=== PATIENT | male | born 1965 | race Caucasian/White ===

== ENCOUNTER 2016-10-30 12:52 | Emergency (ER) | payer OTHER ==
--- NOTE | 2016-10-30 13:19 | ED ---
General Adult HPI - General Chief complaint: Recheck/Abnormal Lab/Rx Stated complaint: Arrhythmia Time Seen by Provider: 10/30/16 13:00 Source: patient, RN notes reviewed Mode of arrival: ambulatory Limitations: no limitations - History of Present Illness Initial comments: This is a 51-year-old male who recently had bypass surgery approximately 2 months ago. Patient states yesterday he felt he was missing a beat he thought and so he took his pulse and he occasionally felt as though he was missing a beat. Patient states it stopped after a couple beats and it started again today for a couple beats so he decided to come to the emergency department. Patient states she's had no chest pain he's had no difficulty breathing or shortness of breath. Patient has had no lightheadedness or dizziness. Patient states he has had no near syncopal episodes. Patient denies any fever chills or cough. Patient states he only had a sensation that he was missing a beat so he took his pulse and it felt like every once in a while he missed a beat but only lasts a few seconds. Patient denies any abdominal pain patient denies nausea vomiting or diarrhea. - Related Data Home Medications Medication Instructions Recorded Confirmed Cholecalciferol [Vitamin D3] 1,000 unit PO DAILY 08/18/16 10/30/16 Terbinafine [LamISIL] 250 mg PO DAILY 08/18/16 10/30/16 Aspirin EC [Ecotrin Low Dose] 81 mg PO DAILY 10/30/16 10/30/16 HYDROcodone/APAP 5-325MG [[place] 1 tab PO Q4HR PRN 10/30/16 10/30/16 5-325] Ibuprofen [Motrin] 800 mg PO Q8H PRN 10/30/16 10/30/16 Previous Rx's Medication Instructions Recorded Lisinopril [Zestril] 5 mg PO BID #60 tab 08/20/16 Atorvastatin [Lipitor] 40 mg PO DAILY #30 tab 08/31/16 Carvedilol [Coreg*] 12.5 mg PO BID-W/MEALS #60 tab 08/31/16 Clopidogrel [Plavix] 75 mg PO DAILY #30 tab 08/31/16 Allergies Allergy/AdvReac Type Severity Reaction Status Date / Time nitroglycerin AdvReac sweating Verified 10/30/16 13:49 and lightheaded Review of Systems ROS Statement: Those systems with pertinent positive or pertinent negative responses have been documented in the HPI. ROS Other: All systems not noted in ROS Statement are negative. 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[place]), recent SOB w/ activity History of Any Multi-Drug Resistant Organisms: None Reported Past Surgical History: Heart Catheterization, Hernia Repair Additional Past Surgical History / Comment(s): right arm tendon surgery, UMBILICAL HERNIA REPAIR, LASIK EYE SX Past Anesthesia/Blood Transfusion Reactions: No Reported Reaction Past Psychological History: No Psychological Hx Reported Smoking Status: Never smoker Past Alcohol Use History: Occasional Past Drug Use History: None Reported - Past Family History Father Additional Family Medical History / Comment(s): FROM SUICIDE Mother Family Medical History: No Reported History Additional Family Medical History / Comment(s): MOM IS 90 AND HEALTHY General Exam - General Exam Comments Initial Comments: GENERAL: Patient is well-developed and well-nourished. Patient is nontoxic and well- hydrated and is in no acute distress. ENT: Neck is soft and supple. No significant lymphadenopathy is noted. Oropharynx is clear. Moist mucous membranes. Neck has full range of motion without eliciting any pain. EYES: The sclera were anicteric and conjunctiva were pink and moist. Extraocular movements were intact and pupils were equal round and reactive to light. Eyelids were unremarkable. PULMONARY: Unlabored respirations. Good breath sounds bilaterally. No audible rales rhonchi or wheezing was noted. CARDIOVASCULAR: There is a regular rate and rhythm without any murmurs gallops or rubs. ABDOMEN: Soft and nontender with normal bowel sounds. SKIN: Skin is clear with no lesions or rashes and otherwise unremarkable. NEUROLOGIC: Patient is alert and oriented x3. Cranial nerves II through XII are grossly intact. Motor and sensory are also intact. Normal speech, volume and content. Symmetrical smile. MUSCULOSKELETAL: Normal extremities with adequate strength and full range of motion. LYMPHATICS: No significant lymphadenopathy is noted PSYCHIATRIC: Normal psychiatric evaluation. Limitations: no limitations Course Vital Signs 10/30/16 13:05 Pulse Rate 61 Respiratory 16 Rate Blood Pressure 153/97 O2 Sat by Pulse 97 Oximetry Medical Decision Making - Medical Decision Making Patient's EKG shows a sinus bradycardia 50 bpm. It was on a 48 QRSs 80 QT interval 396 QTC is 388 per patient's EKG shows no ST segment elevation or depression or T-wave abdomen is noted. Patient has had no further episodes while in the emergency department and he is been here an hour so I spoke with Dr. Malone agreed the patient could follow-up Dr. Golden for Holter monitor Disposition Clinical Impression: Palpitations Disposition: HOME SELF-CARE Condition: Good Instructions: Palpitations (ED) Additional Instructions: Patient should follow-up with Dr. Golden for a Holter monitor. Referrals: Krystian Khan MD [Primary Care Provider] - 1-2 days Time of Disposition: 13:55
[2016-10-30 14:08] VITALS: BP 154/65; PULSE 51; RESP 18; TEMP 97.3
== END 2016-10-30 14:08 | disposition home or self-care (01) ==
LOC: EC 12:52
DX: R00.2 Palpitations (principal); Z95.1 Presence of aortocoronary bypass graft; Z79.02 Long term (current) use of antithrombotics/antiplatelets; Z79.82 Long term (current) use of aspirin; Z79.899 Other long term (current) drug therapy; Z88.8 Allergy status to other drugs, medicaments and biological substances; E78.5 Hyperlipidemia, unspecified; I10 Essential (primary) hypertension
CPT/HCPCS: 93005; 99283

== ENCOUNTER → 2018-02-16 | Outpatient (CLI) | payer BC ==
[2018-02-16 11:50] LABS: ALT 41 U/L (21-72); AST 32 U/L (17-59); Albumin 4.3 g/dL (3.5-5.0); Alkaline Phosphatase 89 U/L (38-126); Anion Gap 13 mmol/L; Blood Urea Nitrogen 17 mg/dL (9-20); Calcium 9.5 mg/dL (8.4-10.2); Carbon Dioxide 27 mmol/L (22-30); Chloride 104 mmol/L (98-107); Cholesterol 170 mg/dL (<200); Glucose 93 mg/dL (74-99); HDL Cholesterol 53 mg/dL (40-60); LDL Cholesterol,Calculated 89 mg/dL (0-99); Potassium 4.8 mmol/L (3.5-5.1); Sodium 144 mmol/L (137-145); Total Bilirubin 0.6 mg/dL (0.2-1.3); Total Protein 6.8 g/dL (6.3-8.2); Triglycerides 140 mg/dL (<150)
== END | disposition home or self-care (01) ==
LOC: LABWHC1 10:54
PROVIDERS: ATTEND Internal Medicine Interventional Cardiology
DX: E78.2 Mixed hyperlipidemia (principal)
CPT/HCPCS: 36415; 80053; 80061

== ENCOUNTER → 2018-08-15 | Outpatient (CLI) | payer BC ==
[2018-08-15 11:18] LABS: Basophils % (A) 0 %; Eosinophils # (A) 0.2 k/uL (0-0.7); Eosinophils % (A) 2 %; HGB 15.4 gm/dL (13.0-17.5); Lymphocytes # (A) 1.7 k/uL (1.0-4.8); Lymphocytes % (A) 25 %; MCH 29.2 pg (25.0-35.0); MCHC 32.8 g/dL (31.0-37.0); MCV 89.1 fL (80.0-100.0); Mean Platelet Volume 6.9; Monocytes # (A) 0.4 k/uL (0-1.0); Monocytes % (A) 6 %; Neutrophils # (A) 4.6 k/uL (1.3-7.7); Neutrophils % (A) 66 %; Platelet Count 222 k/uL (150-450); RBC 5.27 m/uL (4.30-5.90); RDW 12.8 % (11.5-15.5)
[2018-08-15 18:24] LABS: Albumin 4.6 g/dL (3.80-4.90); Albumin/Globulin Ratio 2.3 (1.20-2.10); Anion Gap 8.3 mmol/L (4.00-12.00); Calcium 9.5 mg/dL (8.7-10.3); Carbon Dioxide 26.7 mmol/L (21.6-31.8); Potassium 4.5 mmol/L (3.5-5.5); Total Bilirubin 0.5 mg/dL (0.2-1.2); Total Protein 6.6 g/dL (6.2-8.2)
[2018-08-15 19:18] LABS: Hemoglobin A1C 5.5 % (4.0-6.0)
== END | disposition home or self-care (01) ==
LOC: LABWHC1 10:31
PROVIDERS: ATTEND Family Medicine
DX: I10 Essential (primary) hypertension (principal); Z79.899 Other long term (current) drug therapy
CPT/HCPCS: 36415; 80053; 80061; 83036; 84443; 85025

== ENCOUNTER → 2018-11-29 | Outpatient (CLI) | payer BC ==
[2018-11-29 12:54] LABS: Basophils % (A) 0 %; Eosinophils # (A) 0.2 k/uL (0-0.7); Eosinophils % (A) 2 %; HCT 46.5 % (39.0-53.0); HGB 15.9 gm/dL (13.0-17.5); Lymphocytes # (A) 1.8 k/uL (1.0-4.8); Lymphocytes % (A) 22 %; MCH 30.9 pg (25.0-35.0); MCHC 34.3 g/dL (31.0-37.0); Mean Platelet Volume 6.3; Monocytes # (A) 0.5 k/uL (0-1.0); Monocytes % (A) 7 %; Neutrophils # (A) 5.5 k/uL (1.3-7.7); Neutrophils % (A) 67 %; Platelet Count 217 k/uL (150-450); RBC 5.17 m/uL (4.30-5.90); RDW 12.8 % (11.5-15.5); WBC 8.1 k/uL (3.8-10.6)
--- NOTE | 2018-11-29 13:55 | XR ---
EXAMINATION TYPE: XR chest 2V DATE OF EXAM: 11/29/2018 COMPARISON: 08/30/2016 INDICATION: Dyspnea x1 month TECHNIQUE: Frontal and lateral views of the chest are obtained. FINDINGS: The heart size is normal. The pulmonary vasculature is normal. The lungs are clear. Sternotomy wires are present from prior CABG. IMPRESSION: 1. No acute pulmonary process.
[2018-11-29 18:42] LABS: Albumin 4.5 g/dL (3.80-4.90); Albumin/Globulin Ratio 2.14 (1.60-3.17); Anion Gap 6.4 mmol/L (4.00-12.00); Calcium 9.9 mg/dL (8.7-10.3); Carbon Dioxide 30.6 mmol/L (21.6-31.8); Globulin 2.1 g/dL (1.6-3.3); LDL Cholesterol,Calculated 78.8 mg/dL (0.0-131.0); Potassium 4.8 mmol/L (3.5-5.5); Total Bilirubin 0.7 mg/dL (0.2-1.2); Total Protein 6.6 g/dL (6.2-8.2); VLDL Calculation 29.2 mg/dL (5.00-40.00)
[2018-11-29 20:18] LABS: Hemoglobin A1C 5.5 % (4.0-6.0)
== END | disposition home or self-care (01) ==
LOC: LABWHC1 11:54
PROVIDERS: ATTEND Family Medicine
DX: R06.00 Dyspnea, unspecified (principal); I10 Essential (primary) hypertension; I82.409 Acute embolism and thrombosis of unspecified deep veins of unspecified lower extremity; Z79.899 Other long term (current) drug therapy
CPT/HCPCS: 36415; 71046; 80053; 80061; 83036; 83880; 84443; 85025; 85379

== ENCOUNTER → 2018-12-06 | Outpatient (CLI) | payer BC | LOC: LABWHC1 11:35 | PROVIDERS: ATTEND Family Medicine | DX: I10 Essential (primary) hypertension (principal); Z79.899 Other long term (current) drug therapy | CPT/HCPCS: 36415; 82785; 84484 ==

== ENCOUNTER → 2018-12-11 | Outpatient (CLI) | payer BC ==
--- NOTE | 2018-12-12 12:32 | ECHOF ---
Referral Reason:Bradycardia R00.1 MEASUREMENTS -------- HEIGHT: 170.2 cm WEIGHT: 127.0 kg BP: RVIDd: 4.1 cm (< 3.3) IVSd: 1.3 cm (0.6 - 1.1) LVIDd: 4.9 cm (3.9 - 5.3) LVPWd: 1.2 cm (0.6 - 1.1) IVSs: 1.6 cm LVIDs: 3.2 cm LVPWs: 1.8 cm LA Diam: 3.6 cm (2.7 - 3.8) LAESV Index (A-L): 22.14 ml/m Ao Diam: 2.8 cm (2.0 - 3.7) AV Cusp: 2.2 cm (1.5 - 2.6) MV EXCURSION: 16.594 mm (> 18.000) MV EF SLOPE: 95 mm/s (70 - 150) EPSS: 0.3 cm MV E Trung: 0.89 m/s MV DecT: 245 ms MV A Trung: 0.70 m/s MV E/A Ratio: 1.27 RAP: 5.00 mmHg RVSP: 33.81 mmHg FINDINGS -------- Sinus rhythm. This was a technically adequate study. The left ventricular size is normal. There is mild concentric left ventricular hypertrophy. Overa ll left ventricular systolic function is normal with, an EF between 55 - 60 %. The right ventricle is moderately enlarged. Normal LA size by volume 22+/-6 ml/m2. The right atrium is normal in size. The aortic valve is trileaflet, and appears structurally normal. No aortic stenosis or regurgitation. The mitral valve is normal. There is trace to mild mitral regurgitation. Mild tricuspid regurgitation present. There is no evidence of pulmonary hypertension. The right v entricular systolic pressure, as measured by Doppler, is 33.81mmHg. The pulmonic valve was not well visualized. There is no pulmonic regurgitation present. The aortic root size is normal. Normal inferior vena cava with normal inspiratory collapse consistent with estimated right atrial pre ssure of 5 mmHg. There is no pericardial effusion. CONCLUSIONS -------- 1. Sinus rhythm. 2. This was a technically adequate study. 3. The left ventricular size is normal. 4. There is mild concentric left ventricular hypertrophy. 5. Overall left ventricular systolic function is normal with, an EF between 55 - 60 %. 6. The right ventricle is moderately enlarged. 7. Normal LA size by volume 22+/-6 ml/m2. 8. The aortic valve is trileaflet, and appears structurally normal. No aortic stenosis or regurgitati on. 9. The mitral valve is normal. 10. There is trace to mild mitral regurgitation. 11. Mild tricuspid regurgitation present. 12. The pulmonic valve was not well visualized. 13. The aortic root size is normal. 14. Normal inferior vena cava with normal inspiratory collapse consistent with estimated right atrial pressure of 5 mmHg. 15. There is no pericardial effusion. ELECTRICAL ASSEMBLER: Amrita Palmer RDCS
== END ==
LOC: RADECHMAIN 12:58
PROVIDERS: ATTEND Family Medicine
DX: I08.1 Rheumatic disorders of both mitral and tricuspid valves (principal)
CPT/HCPCS: 93306

== ENCOUNTER 2018-12-22 07:52 | Day surgery (SDC) | payer BC ==
[~2018-12-22 07:52] MED LIST: ALPRAZolam 0.25 MG TAB PO PRN; ALPRAZolam 0.5 MG TAB PO PRN; ASPIRIN 325 MG TAB PO STA; ATORVASTATIN 80 MG TAB PO STA; NITROGLYCERIN SL TABS 0.4 MG TAB SUBLINGUAL PRN; SODIUM CHLORIDE 0.9% 1,000 ML in EMPTY BAG 1 BAG IV ONE
[2018-12-22] MEDS ORDERED: VERAPAMIL 2.5 MG/ML 2 ML AMP ONE (10:42)
[2018-12-22] MEDS ORDERED: LIDOCAINE 1% INJ 10MG/ML (20 ML MDV) ONE (10:42)
[2018-12-22] MEDS ORDERED: fentaNYL (PF) 50 MCG/ML 2 ML AMP ONE (10:57)
[2018-12-22] MEDS ORDERED: HEPARIN SODIUM 1,000 UN/ML (10ML VL) ONE ×2 (11:01→11:57)
[2018-12-22] MEDS ORDERED: fentaNYL (PF) 50 MCG/ML 2 ML AMP IV ONE (11:19)
[2018-12-22] MEDS ORDERED: LIDOCAINE 1% INJ 10MG/ML (20 ML MDV) SQ ONE (11:25)
[2018-12-22] MEDS ORDERED: VERAPAMIL SYRINGE (5 MG/10 ML) INTRAARTER ONE (11:27)
[2018-12-22] MEDS ORDERED: CLOPIDOGREL 75 MG TAB ONE (11:52)
[2018-12-22] MEDS ORDERED: CLOPIDOGREL 75 MG TAB PO ONE (11:58)
[2018-12-22] MEDS ORDERED: IOPAMIDOL-370 150ML BTL INJ ONE (12:01)
[2018-12-22] MEDS ORDERED: IOPAMIDOL-370 100ML BTL INJ ONE (12:19)
[2018-12-22] MEDS ORDERED: MAG HYDROX/AL HYDROX/SIMETH 30 ML CUP ONE (12:29)
[2018-12-22] MEDS ORDERED: ATROPINE SULFATE 0.1 MG/ML 10ML SYRINGE IV PRN (12:41)
[2018-12-22] MEDS ORDERED: ZOLPIDEM 5 MG TAB PO PRN (12:41)
[2018-12-22] MEDS ORDERED: NITROGLYCERIN SL TABS 0.4 MG TAB SUBLINGUAL PRN (12:41)
[2018-12-22] MEDS ORDERED: RX INFO: IV CONTRAST WAS GIVEN 1 EACH MISC MISCELLANE PRN (12:41)
[2018-12-22] MEDS ORDERED: MAG HYDROX/AL HYDROX/SIMETH 30 ML CUP PO PRN (12:41)
[2018-12-22] MEDS ORDERED: SODIUM CHLORIDE 0.9% 1,000 ML IV SCH (12:45)
--- NOTE | 2018-12-22 13:04 | CC ---
CARDIAC CATHETERIZATION REPORT Mr. Dover is a 53-year-old male with known history of coronary artery disease, status post coronary artery bypass grafting in 2016, history of hypertension, hyperlipidemia, who has been complaining of episode of chest discomfort, reminding him of the way he felt, prior to his intervention. In view of that, recommendation made regarding cardiac catheterization. The procedures, risks, and complication were discussed with the patient who is in full understanding and agreement. PROCEDURE: Patient was brought to the blood bank laboratory professional in a fasting semi-sedated state after receiving fentanyl and Benadryl and achieving moderate conscious sedated state. Using Xylocaine anesthesia and Seldinger technique, a 6-[place] sheath was introduced in the left radial artery. Selective right and left angiography were performed using 5-[place] 4 bend right and left Lauren catheter. Multiple views of the coronary artery including hemiaxial views obtained. Following that, a 5-[place] right Lauren catheter was used to cannulate the ostium of the saphenous vein graft to the right coronary artery. Following that, a 6-[place] left coronary bypass catheter was used to cannulate the saphenous vein graft to the diagonal branch and images of the grafts were obtained. Following that, a 6-[place] JIMMY catheter was used to cannulate the MEDINA to LAD. Images of the grafts were obtained. Following that, angioplasty and stenting was performed. Of note, the patient received a total of 5000 units of intravenous heparin as well as intra-arterial verapamil. FINDINGS: LEFT MAIN: This is a short-size vessel, bifurcating into left circumflex, left anterior descending artery, left main coronary artery, has no evidence of high-grade stenosis. LEFT ANTERIOR DESCENDING ARTERY: This vessel is totally occluded proximally with no significant antegrade flow. LEFT CIRCUMFLEX: This is a nondominant vessel, giving rise to a large obtuse marginal branch that has a 70% stenosis. There is retrograde filling through the bypass graft. The rest of the vessel has no high-grade stenosis. RIGHT CORONARY ARTERY: This is a large dominant vessel bifurcating distally into PDA and small posterolateral segment and branches. The right coronary artery proximally has a 70% lesion. There is another two lesion distally prior to the bifurcation up to 80%. The rest of the vessel has no high-grade stenosis. SAPHENOUS VEIN GRAFT TO THE RIGHT CORONARY ARTERY: This graft is totally occluded with no significant antegrade flow. SAPHENOUS VEIN GRAFT TO THE DIAGONAL BRANCH: The proximal distal anastomotic site is patent, the flow into the graft is brisk. There is no evidence of high-grade stenosis. MEDINA TO LAD: This vessel is patent. The distal anastomotic site is patent. There is a jump graft in a Y-manner to the obtuse marginal branch with good flow and no evidence of stenosis. LEFT VENTRICULOGRAM: Left ventriculogram is not performed. CONCLUSION: 1. Severe triple-vessel coronary artery disease. 2. Patent MEDINA to LAD and a patent Y-graft from the MEDINA with a LAYNE to the obtuse marginal branch. 3. Patent saphenous vein graft to the diagonal branch. 4. Chronically occluded saphenous vein graft to the right coronary artery. RECOMMENDATION: In view of finding anatomy, I recommend proceeding with angioplasty and stenting of the right coronary artery. The procedures, risks, and complications were discussed with the patient who is in full understanding and agreement. MMODL / IJN: [id number] /
--- NOTE | 2018-12-22 13:06 | PTCA ---
PERCUTANEOUSTRANS CORORONARY ANGIOGRAPHY Mr. Dover is a 53-year-old male with a history of coronary artery disease, status post coronary artery bypass grafting who has been complaining of exertional chest discomfort. Underwent cardiac catheterization, was found to have occluded saphenous vein graft to the right coronary artery with significant disease in the vessel. In view of that, recommendation was made regarding angioplasty and stenting. The procedures, risks, and complication were discussed with the patient who is in full understanding and agreement. PROCEDURE: A 6-Chinese FR4 guiding catheter introduced into system. After cannulating the right coronary ostium, a 0.014 balanced medium weight J-wire was advanced across the lesion, positioned distally and subsequently 2.5 x 12 mm Trek balloon was advanced and two inflation at 8 atmospheres were done. Following that, the balloon was removed and a 2.5 x 23 mm Xience Agata stent was deployed, postdilated at 16 atmospheres. Following that, the balloon was removed and proximal to that stent a 2.5 x 12 mm Xience Agata stent was deployed and post dilated at 16 atmospheres. Following that, the balloon was removed and a 2.75 x 23 mm Xience Agata stent was deployed in the proximal segment of the right coronary artery and postdilated at 16 atmospheres. After the last inflation, after appropriate wait, the balloon and the guidewire were withdrawn back in the guiding catheter. Images were obtained and repeated. Those images reveal stable successful stenting. At that point, the guiding catheter, the balloon and the guidewire were removed. The sheath was removed. Hemostasis was obtained with deployment of a TR band. There was no immediate complication. Patient is returned to his room in stable condition. The patient received in addition, 10,000 units of intravenous heparin. He had chest discomfort and EKG changes with the inflation, that resolved at the end of procedure. RESULTS: Successful stenting of the distal right coronary artery with reduction of stenosis from 80% to 0% and successful stenting of the proximal right coronary artery with reduction of stenosis from 70% to 0%. RECOMMENDATION: Patient will be continued on aspirin, Plavix, beta blockers and statin. The importance of dual antiplatelet treatment were discussed with the patient and his family who are in full understanding and agreement. Duration of the procedure is 56 minutes. MMODL / IJN: [id number] /
[2018-12-22 16:16] VITALS: BMI 43.6
[2018-12-22] MEDS: CARVEDILOL 3.125 MG TAB PO SCH (17:23)
[2018-12-23 04:14] VITALS: RESP 18
[2018-12-23] MEDS: CARVEDILOL 3.125 MG TAB PO SCH (06:34)
[2018-12-23] MEDS ORDERED: SYMBICORT 160-4.5 MCG INHALER INHALATION SCH (08:00)
[2018-12-23 08:07] VITALS: BP 132/86; PULSE 59; TEMP 97.6
[2018-12-23 08:09] LABS: Anion Gap 9 mmol/L; Blood Urea Nitrogen 13 mg/dL (9-20); Calcium 9.4 mg/dL (8.4-10.2); Carbon Dioxide 26 mmol/L (22-30); Chloride 104 mmol/L (98-107); Glucose 92 mg/dL (74-99); Potassium 4.6 mmol/L (3.5-5.1); Sodium 139 mmol/L (137-145)
--- NOTE | 2018-12-23 08:44 | PN ---
PROGRESS NOTE Mr. Dover is a 53-year-old male with a known history of coronary artery disease status post coronary artery bypass grafting who presented with symptoms of angina pectoris, underwent cardiac catheterization, was found to have significant obstructive disease involving his [place] right coronary artery. He underwent stenting of that vessel in the distal and proximal segment. He is doing well this morning. He is denying any chest pain. His breathing has been stable. He has been ambulating without difficulty. He continues to be on aspirin once a day, amlodipine 5 mg daily, Lipitor 40 mg daily, Coreg 3.15 mg twice a day, Plavix 75 mg daily. PHYSICAL EXAMINATION: Blood pressure 101/60 with a heart rate in the 60s. LUNGS: Clear. HEART: Regular rate and rhythm, S1, S2. No S3. No rub. ABDOMEN: Soft, nontender, obese. EXTREMITIES: No edema. Left radial pulse intact. IMPRESSION: 1. Status post stenting of the right coronary artery, stable. 2. Status post coronary artery bypass grafting. 3. Hypertension. 4. Hyperlipidemia. RECOMMENDATIONS: Patient will be discharged home today and followed as an outpatient. MMODL / IJN: [id number] /
[2018-12-23] MEDS ORDERED: amLODIPine 5 MG TAB PO SCH (09:00)
[2018-12-23] MEDS ORDERED: ATORVASTATIN 40 MG TAB PO SCH (09:00)
[2018-12-23] MEDS ORDERED: CHOLECALCIFEROL 1,000 UNIT TAB PO SCH (09:00)
[2018-12-23] MEDS ORDERED: ASPIRIN 81 MG PO SCH (09:00)
[2018-12-23] MEDS ORDERED: CLOPIDOGREL 75 MG TAB PO SCH (12:00)
== END 2018-12-23 10:37 | disposition home or self-care (01) ==
LOC: CATHCVL 07:52 → 3SCARD 14:50 → CATHCVL 12-23 10:37
PROVIDERS: ATTEND Internal Medicine Interventional Cardiology
DX: I25.810 Atherosclerosis of coronary artery bypass graft(s) without angina pectoris (principal); I25.82 Chronic total occlusion of coronary artery; I10 Essential (primary) hypertension; E78.2 Mixed hyperlipidemia; E78.00 Pure hypercholesterolemia, unspecified; Z79.82 Long term (current) use of aspirin; Z79.899 Other long term (current) drug therapy
CPT/HCPCS: 94640 ×2; 93455; 85347; 80048; C9600; C1769 ×2; C1887; C1894; C1725; C1874; J2001; J3010; J1644; Q9967 ×2

== ENCOUNTER 2019-01-15 10:19 | Observation (INO) | payer BC ==
[2019-01-15] MEDS ORDERED: ASPIRIN 81 MG PO STA (10:33)
--- NOTE | 2019-01-15 10:44 | ED ---
Chest Pain HPI - General Chief Complaint: Chest Pain Stated Complaint: chest pressure Time Seen by Provider: 01/15/19 10:33 Source: patient Mode of arrival: wheelchair - History of Present Illness Initial Comments: 54-year-old male with past medical history of recent stent placement that 3 weeks prior, previous quadruple bypass 2016, hypertension, hyperlipidemia currently on Plavix and low-dose aspirin, [place] route carrier Dr. Golden reason today for chief complaint of chest pressure with by exercise. Patient states that 2-3 weeks ago he had 3 stents placed, he was told that his previous quadruple bypass from 2016 and had areas of failure. Stent placement was performed by Dr. Crowell. Patient states that since that placement he has still been experiencing chest pain and pressure with light exercise after about 5-10 minutes. Patient states the pain is in the center of the chest pressure that goes up towards the bottom of his neck. Patient states this scared her states is identical to his previous chest pain prior to the stent placement. Patient states the pain is alleviated with rest. Patient denies experiencing the symptoms at rest frequently however it has occurred on occasion, denies current. Patient denies leg swelling, dyspnea. He states he has felt weak with light exercise/mild SOB. She denies fever chills cough night sweats. Remaining review of systems negative, patient denies any recent abdominal pain, nausea or vomiting, numbness or tingling, jaw pain, dysuria or hematuria, constipation or diarrhea, headaches or visual changes, or any other complaints. Patient states he took his medication of Plavix and aspirin this morning. Patient states he had a low-impact stress test last week, he states there was towards the end one irregular beat and this test was stopped secondary to his recent stent placement. Pt states he presented today when chest pain occurred with light physical activity. - Related Data Home Medications Medication Instructions Recorded Confirmed Cholecalciferol [Vitamin D3] 1,000 unit PO DAILY 08/18/16 01/15/19 Aspirin EC [Ecotrin Low Dose] 81 mg PO DAILY 10/30/16 01/15/19 Carvedilol [Coreg*] 3.125 mg PO BID 12/21/18 01/15/19 amLODIPine [Norvasc] 5 mg PO DAILY 12/21/18 01/15/19 Fluticasone/Vilanterol [Breo 1 puff INHALATION DAILY 12/22/18 01/15/19 Ellipta 200-25 Mcg INH] Previous Rx's Medication Instructions Recorded Atorvastatin [Lipitor] 40 mg PO DAILY #30 tab 08/31/16 Clopidogrel [Plavix] 75 mg PO DAILY #90 tab 12/23/18 Nitroglycerin Sl Tabs [Nitrostat] 0.4 mg SUBLINGUAL Q5M PRN #25 tab 12/23/18 Allergies Allergy/AdvReac Type Severity Reaction Status Date / Time nitroglycerin AdvReac sweating Verified 01/15/19 10:58 and lightheaded Review of Systems ROS Statement: Those systems with pertinent positive or pertinent negative responses have been documented in the HPI. ROS Other: All systems not noted in ROS Statement are negative. EKG Findings - EKG Comments: EKG Findings:: Ventricular rate 61 bpm, SC interval 156 ms, QRS spiritism 88 ms, QT/QTC 408/410 ms. This appears to be normal sinus. No ST elevation or depression. Nonspecific T wave changes. 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 3 stents paced middle of december 2018 Past Anesthesia/Blood Transfusion Reactions: No Reported Reaction Past Psychological History: No Psychological Hx Reported Smoking Status: Never smoker Past Alcohol Use History: Occasional Past Drug Use History: None Reported - Past Family History Father Additional Family Medical History / Comment(s): FROM [place]ICIDE Mother Family Medical History: No Reported History Additional Family Medical History / Comment(s): MOM IS 90 AND HEALTHY General Exam - General Exam Comments Initial Comments: General: The patient is awake and alert, in no distress, and does not appear acutely ill. Eye: +3 mm pupils are equal, round and reactive to light, extra-ocular movements are intact. No nystagmus. There is normal conjunctiva bilaterally. No signs of icterus. Ears, nose, mouth and throat: There are moist mucous membranes and no oral lesions. Neck: The neck is supple, there is no tenderness or JVD. Cardiovascular: There is a regular rate and rhythm. No murmur, rub or gallop is appreciated. Respiratory: Lungs are clear to auscultation, respirations are non-labored, breath sounds are equal. No wheezes, stridor, rales, or rhonchi. Gastrointestinal: Soft, non-distended, non-tender abdomen without masses or organomegaly noted. There is no rebound or guarding present. Bowel sounds are unremarkable. Musculoskeletal: Normal ROM, no tenderness. Strength 5/5. Sensation intact. DP and radial pulses equal bilaterally 2+. Neurological: A&O x 3. CN II-XII intact, There are no obvious motor or sensory deficits. Coordination appears grossly intact. Speech is normal. Skin: Skin is warm and dry and no rashes or lesions are noted. No LE edema. Psychiatric: Cooperative, appropriate mood & affect, normal judgment. Course Vital Signs 01/15/19 01/15/19 01/15/19 10:27 10:50 10:52 Temperature 98.3 F Pulse Rate 58 L 50 L Pulse Rate [ 50 L Compilation Clerk ] Respiratory 18 18 Rate Blood Pressure 141/93 149/93 O2 Sat by Pulse 95 95 Oximetry 01/15/19 01/15/19 01/15/19 11:58 14:30 14:44 Temperature 98.3 F 98 F Pulse Rate 49 L 52 L Pulse Rate [ Compilation Clerk ] Respiratory 18 16 Rate Blood Pressure 151/95 134/91 O2 Sat by Pulse 97 97 Oximetry Chest Pain [facility] 54-year-old male presented for chest discomfort with exertion. Patient states it has occurred at rest on and off denies dysuria or chest pain at rest within the last 2 days. Patient states he has experienced chest pain with exertion, he states this is with light exercise no significant amount of stress activity. Patient states he had recent stent placement. Patient was concerned when symptoms felt similar to that of the CP prior to stent placement, and presents emergency department for evaluation. Initial troponin negative. EKG revealed no acute findings no ST elevation or depression. Chest x-ray within normal limits. Patient denies any infectious symptoms or constitutional. Patient appears well no signs of acute distress. Vital signs within acceptable limits. Patient placenta limited to. At this time given patient's risk factors I feel admission for serial troponin and cardiac evaluation by Dr. Golden is appropriate at this time. Discussed case with attending provider Dr. Delgado who is agreeable with plan and admission of patient. Findings were discussed the patient, patient transferred to the floor in stable condition appearing well. Attending provider spoke with admitting. Cardiology on consult. Disposition Clinical Impression: Exertional angina Disposition: ADMITTED IP TO THIS [facility] Condition: Stable Is patient prescribed a controlled substance at d/c from ED?: No Time of Disposition: 12:16 Decision to Admit Reason: Admit from EC Decision Date: 01/15/19 Decision Time: 12:16
[2019-01-15 11:01] LABS: Basophils % (A) 0 %; Eosinophils # (A) 0.2 k/uL (0-0.7); Eosinophils % (A) 3 %; HGB 15.1 gm/dL (13.0-17.5); Lymphocytes # (A) 1.3 k/uL (1.0-4.8); Lymphocytes % (A) 17 %; MCH 29.6 pg (25.0-35.0); MCHC 34.4 g/dL (31.0-37.0); Mean Platelet Volume 6.6; Monocytes # (A) 0.5 k/uL (0-1.0); Monocytes % (A) 7 %; Neutrophils # (A) 5.5 k/uL (1.3-7.7); Neutrophils % (A) 71 %; Platelet Count 217 k/uL (150-450); RBC 5.11 m/uL (4.30-5.90); RDW 12.9 % (11.5-15.5); WBC 7.7 k/uL (3.8-10.6)
[2019-01-15 11:13] LABS: ALT 33 U/L (21-72); AST 24 U/L (17-59); Alkaline Phosphatase 84 U/L (38-126); Anion Gap 8 mmol/L; Blood Urea Nitrogen 13 mg/dL (9-20); Calcium 9.5 mg/dL (8.4-10.2); Carbon Dioxide 24 mmol/L (22-30); Chloride 107 mmol/L (98-107); Glucose 84 mg/dL (74-99); Magnesium 1.9 mg/dL (1.6-2.3); Potassium 4.4 mmol/L (3.5-5.1); Sodium 139 mmol/L (137-145); Total Bilirubin 0.6 mg/dL (0.2-1.3); Total Protein 6.6 g/dL (6.3-8.2)
[2019-01-15 11:15] LABS: INR 0.9 (<1.2); Partial Thromboplastin Time 25.2 sec (22.0-30.0); Prothrombin Time 9.9 sec (9.0-12.0)
--- NOTE | 2019-01-15 11:33 | XR ---
EXAMINATION TYPE: XR chest 2V DATE OF EXAM: 01/15/2019 COMPARISON: Prior chest x-ray 11/29/2018 HISTORY: Chest pain TECHNIQUE: Frontal and lateral views of the chest are obtained. FINDINGS: Patient is status post median sternotomy. There are overlying cardiac leads. Prominent lung lines suggest underlying COPD. There is no focal air space opacity, pleural effusion, or pneumothora x seen. The cardiac silhouette size is within normal limits. The osseous structures are intact. IMPRESSION: No acute cardiopulmonary process.
[2019-01-15] MEDS ORDERED: NITROGLYCERIN SL TABS 0.4 MG TAB SUBLINGUAL PRN (15:47)
[2019-01-15] MEDS: CARVEDILOL 3.125 MG TAB PO SCH (17:24)
[2019-01-15] MEDS: SYMBICORT 160-4.5 MCG INHALER INHALATION SCH (20:00)
[2019-01-15] MEDS ORDERED: RX INFO: IV CONTRAST WAS GIVEN 1 EACH MISC MISCELLANE PRN (23:29)
--- NOTE | 2019-01-16 01:33 | CT ---
EXAM: CT Chest With Intravenous Contrast CLINICAL HISTORY: chest pain TECHNIQUE: 5 mm Axial computed tomography images of the chest with intravenous contrast. DLP is 730.4 mGy-cm. This CT exam was performed using one or more of the following dose reduction techniques: automated exposure control, adjustment of the mA and/or kV according to patient size, and/or use of iterative reconstruction technique. Note, slice thickness of this exam is not dedicated for PE evaluation. COMPARISON: Chest radiograph from 01/15/2019 FINDINGS: Lungs: Unremarkable. No mass. No consolidation. Pleural space: Unremarkable. No pneumothorax. No significant effusion. Heart: Unremarkable. No cardiomegaly. No significant pericardial effusion. Mediastinum: Sternal wires. Mediastinal clips. Bones/joints: Mild degenerative changes in the visualized osseous structures. Sternal wires. Soft tissues: Unremarkable. Vasculature: Small amount of atherosclerotic calcifications. No thoracic aortic aneurysm. Lymph nodes: Unremarkable. No enlarged lymph nodes. IMPRESSION: No acute findings.
[2019-01-16 04:20] LABS: Cholesterol 136 mg/dL (<200); HDL Cholesterol 45 mg/dL (40-60); LDL Cholesterol,Calculated 70 mg/dL (0-99); Triglycerides 103 mg/dL (<150)
[2019-01-16 06:59] LABS: T4, Free (Free Thyroxine) 1.01 ng/dL (0.78-2.19)
[2019-01-16 07:11] VITALS: RESP 18
[2019-01-16] MEDS ORDERED: SYMBICORT 160-4.5 MCG INHALER INHALATION SCH (08:00)
[2019-01-16] MEDS: SYMBICORT 160-4.5 MCG INHALER INHALATION SCH (08:28)
[2019-01-16] MEDS ORDERED: CLOPIDOGREL 75 MG TAB PO SCH (09:00)
[2019-01-16] MEDS ORDERED: ASPIRIN 325 MG TAB PO SCH (09:00)
[2019-01-16] MEDS ORDERED: amLODIPine 5 MG TAB PO SCH (09:00)
[2019-01-16] MEDS ORDERED: ATORVASTATIN 40 MG TAB PO SCH (09:00)
[2019-01-16] MEDS ORDERED: CHOLECALCIFEROL 1,000 UNIT TAB PO SCH (09:00)
[2019-01-16] MEDS ORDERED: ASPIRIN 81 MG PO SCH (09:00)
[2019-01-16] MEDS ORDERED: ALPRAZolam 0.25 MG TAB PO PRN (10:01)
[2019-01-16] MEDS ORDERED: SODIUM CHLORIDE 0.9% 1,000 ML in EMPTY BAG 1 BAG IV ONE (10:01)
[2019-01-16] MEDS ORDERED: ALPRAZolam 0.5 MG TAB PO PRN (10:01)
[2019-01-16] MEDS: CARVEDILOL 3.125 MG TAB PO SCH (10:21)
--- NOTE | 2019-01-16 12:17 | P.CRDCN ---
History of Present Illness History of present illness: This is a pleasant 54-year-old male past medical history significant for coronary artery disease s/p bypass grafting and subsequent stent placement to RCA in December of this year. He also has hypertension, dyslipidemia and umbilical hernia. He follows with Dr. Golden. 12/22/2018 he underwent cardiac catheterization revealing severe triple vessel coronary artery disease, patent MEDINA to LAD, patent Y graft from the MEDINA with a LAYNE to the OM, patent SVG to diagonal branch and a chronically occluded SVG to RCA. Currently maintained on dual antiplatelet therapy. We have been asked to see him in consultation secondary to chest discomfort. He states for approximately the previous 2 weeks he has felt exertional chest discomfort. Specifically a couple of days ago while he was raking his yard he started feeling a tension burning sensation in the midsternal region with radiation up into the neck and throat. He states it feels like his throat is very full and swollen and he has difficulty swallowing. He sits down and stops the activity is doing and his chest discomfort subsided. He denies associated shortness of breath, dizziness, nausea, vomiting or diaphoresis. He underwent a low-level stress test in the office and the beginning of January of which she was unable to achieve his target heart rate however had no EKG evidence of inducible ischemia. He states he has been compliant with his dual antiplatelet therapy. EKG reveals sinus mechanism with no acute ST or T wave abnormalities noted. Chest x-ray is negative for an acute cardiopulmonary process. CT of the chest is negative for an acute dissection or abnormality. Laboratory data reviewed, cardiac enzymes negative 3, d-dimer negative, TSH 4.9, creatinine 0.71 with a GFR greater than 90. Current cardiac medications include aspirin 81 mg daily, Plavix 75 mg daily, amlodipine 5 mg daily, atorvastatin 80 mg daily and Coreg 3.125 mg twice a day. most recent echocardiogram obtained in December 2018 reveals preserved left ventricular systolic function with ejection fraction 55-60%. At the time of my exam: CONSTITUTIONAL: Denies fever. Denies chills. EYES: Denies blurred vision. Denies vision changes. Denies eye pain. EARS, NOSE, MOUTH & THROAT: Denies headache. Denies sore throat. Denies ear pain. CARDIOVASCULAR: Denies chest pain. Denies shortness of breath. Denies orthopnea. Denies PND. Denies palpitations. RESPIRATORY: Denies cough. GASTROINTESTINAL: Denies abdominal pain. Denies diarrhea. Denies constipation. Denies nausea. Denies vomiting. MUSCULOSKELETAL: Denies myalgias. INTEGUMENTARY: Denies pruitis. Denies rash. NEUROLOGIC: Denies numbness. Denies tingling. Denies weakness. PSYCHIATRIC: Denies anxiety. Denies depression. ENDOCRINE: Denies fatigue. Denies weight change. Denies polydipsia. Denies polyurina. GENITOURINARY: Denies burning, hematuria or urgency with micturation. HEMATOLOGIC: Denies history of anemia. Denies bleeding. Blood pressure 115/71 heart rate 52 afebrile maintaining oxygen saturation on room air GENERAL: This is a 54-year-old male in no apparent distress at the time of my examination. obese. HEENT: Head is atraumatic, normocephalic. Pupils are equal, round. Sclerae anicteric. Conjunctivae are clear. Mucous membranes of the mouth are moist. Neck is supple. There is no jugular venous distention. No carotid bruit is heard. LUNGS: Clear to auscultation no wheezes, rales or rhonchi. No chest wall tenderness is noted on palpation or with deep breathing. HEART: Regular rate and rhythm without murmurs, rubs or gallops. S1 and S2 heard. ABDOMEN: Soft, nontender. Bowel sounds are heard. No organomegaly noted. EXTREMITIES: No evidence of peripheral edema and no calf tenderness noted. VASCULAR: Radial and dorsalis pedis pulses palpated, no evidence of clubbing. NEUROLOGIC: Patient is awake, alert and oriented x3. ASSESSMENT unstable angina History of coronary artery disease status post bypass grafting and recent stent placement to the RCA December 2018 maintained on dual antiplatelet therapy Hypertension Dyslipidemia PLAN Recommend proceeding with cardiac catheterization to further assess for acute in-stent restenosis. I have discussed the risks, benefits and alternative therapies for the above- mentioned procedure and for both sedation/analgesia as well as necessary blood product administration, if indicated, as they pertain to this patient. The patient has indicated understanding and acceptance of the risks and procedures discussed. Questions have been answered appropriately and he is agreeable to move forward with the above stated procedure. Further recommendations to follow. Thank you kindly for this consultation. Nurse Practitioner note has been reviewed, I agree with a documented findings and plan of care. Patient was seen and examined. 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 3 stents paced middle of december 2018 Past Anesthesia/Blood Transfusion Reactions: No Reported Reaction Date of Last Stent Placement:: 12/22/18 Past Psychological History: No Psychological Hx Reported Smoking Status: Never smoker Past Alcohol Use History: Occasional Past Drug Use History: None Reported - Past Family History Father Additional Family Medical History / Comment(s): FROM SUICIDE Mother Family Medical History: No Reported History Additional Family Medical History / Comment(s): MOM IS 90 AND HEALTHY Medications and Allergies Home Medications Medication Instructions Recorded Confirmed Type Cholecalciferol [Vitamin D3] 1,000 unit PO DAILY 08/18/16 01/15/19 History Atorvastatin [Lipitor] 40 mg PO DAILY #30 tab 08/31/16 01/15/19 Rx Aspirin EC [Ecotrin Low Dose] 81 mg PO DAILY 10/30/16 01/15/19 History Carvedilol [Coreg*] 3.125 mg PO BID 12/21/18 01/15/19 History amLODIPine [Norvasc] 5 mg PO DAILY 12/21/18 01/15/19 History Fluticasone/Vilanterol [Breo 1 puff INHALATION DAILY 12/22/18 01/15/19 History Ellipta 200-25 Mcg INH] Clopidogrel [Plavix] 75 mg PO DAILY #90 tab 12/23/18 01/15/19 Rx Nitroglycerin Sl Tabs [Nitrostat] 0.4 mg SUBLINGUAL Q5M PRN #25 tab 12/23/18 01/15/19 Rx Allergies Allergy/AdvReac Type Severity Reaction Status Date / Time nitroglycerin AdvReac sweating Verified 01/15/19 10:58 and lightheaded Physical Exam Vitals: Vital Signs Temp Pulse Pulse Resp BP BP BP 01/16/19 11:24 98.5 F 55 L 18 129/81 01/16/19 08:00 52 L 18 01/16/19 07:05 97.5 F L 52 L 18 115/71 01/16/19 03:46 97.7 F 49 L 16 109/58 01/16/19 03:37 16 01/16/19 00:00 16 01/15/19 23:44 98.7 F 55 L 16 133/61 01/15/19 20:00 98.3 F 53 L 16 134/82 01/15/19 16:14 01/15/19 14:57 98.2 F 57 L 18 152/96 01/15/19 14:44 98 F 01/15/19 14:30 52 L 16 134/91 Pulse Ox 01/16/19 11:24 96 01/16/19 08:00 01/16/19 07:05 95 01/16/19 03:46 94 L 01/16/19 03:37 01/16/19 00:00 01/15/19 23:44 97 01/15/19 20:00 93 L 01/15/19 16:14 98 01/15/19 14:57 97 01/15/19 14:44 01/15/19 14:30 97 Intake and Output 01/15/19 01/16/19 01/16/19 22:59 06:59 14:59 Intake Total 236 Balance 236 Intake: Oral 236 Other: Voiding Method Toilet Toilet Toilet # Voids 2 2 Results 01/15/19 10:45 01/15/19 10:45 Cardiac Enzymes 01/15/19 01/15/19 Range/Units 17:15 22:56 Troponin I <0.012 <0.012 (0.000-0.034) ng/mL Lipids 01/15/19 Range/Units 10:45 Triglycerides 103 (<150) mg/dL Cholesterol 136 (<200) mg/dL HDL Cholesterol 45 (40-60) mg/dL Current Medications Generic Name Dose Route Start Last Admin Trade Name Freq PRN Reason Stop Dose Admin Alprazolam 0.25 mg 01/16/19 10:01 Xanax PO Q6HR PRN Mild Anxiety Alprazolam 0.5 mg 01/16/19 10:01 Xanax PO Q6HR PRN Moderate Anxiety Amlodipine Besylate 5 mg 01/16/19 09:00 01/16/19 10:21 Norvasc PO 5 mg DAILY KAREN Administration Aspirin 81 mg 01/16/19 09:00 01/16/19 10:22 Aspirin PO Not Given DAILY KAREN Atorvastatin Calcium 40 mg 01/16/19 09:00 01/16/19 10:22 Lipitor PO 40 mg DAILY KAREN Administration Budesonide/Formoterol Fumarate 2 puff 01/15/19 20:00 01/16/19 08:28 Symbicort 160-4.5 Mcg Inhaler INHALATION 2 puff RT-BID KAREN Administration Carvedilol 3.125 mg 01/15/19 17:30 01/16/19 10:21 Coreg PO 3.125 mg BID-W/MEALS KAREN Administration Cholecalciferol 1,000 unit 01/16/19 09:00 01/16/19 10:22 Vitamin D3 PO 1,000 unit DAILY KAREN Administration Clopidogrel Bisulfate 75 mg 01/16/19 09:00 01/16/19 10:21 Plavix PO 75 mg DAILY KAREN Administration Sodium Chloride 1,000 ml/ IV 1,000 mls @ 127.006 mls/hr 01/16/19 10:01 01/16/19 10:39 Solution IV 01/16/19 17:53 127.006 mls/hr .Q7H53M ONE Administration 1 ML/KG/HR Miscellaneous Information 1 each 01/15/19 23:29 Rx Info: Iv Contrast Was Given MISCELLANE 01/17/19 23:30 DAILY PRN Per Protocol Nitroglycerin 0.4 mg 01/15/19 15:47 Nitrostat SUBLINGUAL Q5M PRN Chest Pain Intake and Output 01/15/19 01/16/19 01/16/19 22:59 06:59 14:59 Intake Total 236 Balance 236 Intake: Oral 236 Other: Voiding Method Toilet Toilet Toilet # Voids 2 2 01/15/19 10:45 01/15/19 10:45
[2019-01-16] MEDS ORDERED: fentaNYL (PF) 50 MCG/ML 2 ML AMP ONE (12:51)
[2019-01-16] MEDS ORDERED: LIDOCAINE 1% INJ 10MG/ML (20 ML MDV) ONE (12:51)
[2019-01-16] MEDS ORDERED: VERAPAMIL 2.5 MG/ML 2 ML AMP ONE (13:01)
[2019-01-16] MEDS ORDERED: fentaNYL (PF) 50 MCG/ML 2 ML AMP IVP ONE (13:05)
[2019-01-16] MEDS ORDERED: LIDOCAINE 2% INJ 20 MG/ML SQ ONE (13:05)
[2019-01-16] MEDS ORDERED: SODIUM CHLORIDE 0.9% 1,000 ML IV ONE (13:06)
[2019-01-16] MEDS ORDERED: HEPARIN SODIUM 1,000 UN/ML (10ML VL) ONE (13:07)
[2019-01-16] MEDS ORDERED: VERAPAMIL SYRINGE (5 MG/10 ML) INTRAARTER ONE (13:08)
[2019-01-16] MEDS ORDERED: HEPARIN SODIUM 1,000 UN/ML (10ML VL) IV ONE (13:12)
[2019-01-16] MEDS ORDERED: IOPAMIDOL-370 150ML BTL INJ ONE (13:27)
[2019-01-16] MEDS ORDERED: RX INFO: IV CONTRAST WAS GIVEN 1 EACH MISC MISCELLANE PRN (13:40)
--- NOTE | 2019-01-16 13:43 | HP ---
HISTORY AND PHYSICAL CHIEF COMPLAINT: This 54-year-old white male with recent bypass grafting and stents to the RCA 2 or 3 weeks ago. He has had significant unstable angina with chest pain with any ambulation. Similar to what he did before the stents were placed. CAT scan of the chest has been ordered, which was negative for any pulmonary features. The patient does not think it is in his lungs. He thinks it is his heart. Chest pain with any exertion. Suboptimal stress test recently. He is admitted due to unstable angina and will need a heart catheterizations. REVIEW OF SYSTEMS: Fourteen-point review of systems negative except for unstable angina. PHYSICAL EXAMINATION: Blood pressure 115/71, heart rate is 50s, respiratory 18 to 20. CARDIOVASCULAR: S1, S2. ENDOCRINE: He is obese. BMI is over 40. OPHTHALMOLOGIC: Pupils equal, round, reactive to light and accommodation. Lungs are clear. Abdomen is soft, distended due to obesity. Vascular is normal dorsalis pedis, posterior tibial, radial pulse. PSYCH: Fair mood and affect. Alert and orient x3. PAST MEDICAL HISTORY: Coronary artery disease, bypass grafting, hernia repair, LASIK eye surgery in the past, 3 stents 3 weeks ago. FAMILY HISTORY: Father from suicide. HOME MEDICATIONS: See list. ASSESSMENT: 1. Unstable angina. 2. Anxiety. 3. Hypertension. 4. Dyslipidemia. 5. Obesity. 6. Onychomycosis. Failed outpatient treatment unstable angina, need heart catheterization. MMODL / LINGN: [id number] /
[2019-01-16] MEDS ORDERED: SODIUM CHLORIDE 0.9% 1,000 ML IV SCH (13:45)
[2019-01-16 14:12] VITALS: TEMP 98
[2019-01-16 15:36] VITALS: BP 127/77; PULSE 65
--- NOTE | 2019-01-16 21:52 | CC ---
CARDIAC CATHETERIZATION REPORT Mr. Dover is a 54-year-old gentleman with known history of coronary artery disease, status post coronary artery bypass grafting and percutaneous revascularization done in December of this year. He presented with recurrent symptoms of chest discomfort that feels the way he felt prior to his PCI. Cardiac enzymes and EKG showed no acute changes, but because of the persistent symptoms, recommendation was made regarding cardiac catheterization. The procedure, its risks and complications were discussed with the patient, who was in full understanding and agreement. PROCEDURE: Patient was brought to the syrup machine laborer in a fasting, semi-sedated state after receiving fentanyl and Benadryl and achieving a moderate conscious sedated state. Using Xylocaine anesthesia and Seldinger technique, a 6-Kazakh sheath was introduced in the left radial artery. Selective right and left coronary angiography was performed using 5-Kazakh 4 bend right and left Lauren catheters. Multiple views were taken of the arteries, including hemiaxial views. Subsequently a 6-Kazakh left coronary artery bypass catheter was introduced and cannulated the saphenous vein grafts to the diagonal and to the RCA. Subsequently an JIMMY catheter was used to cannulate the MEDINA to the LAD and images of the grafts were obtained. Following that, a 5-Kazakh tight pigtail catheter was introduced in the left ventricle and a 30-degree BANSAL view of the left ventricle was obtained. Following that, catheter and sheath were removed. Hemostasis was obtained with deployment of a TR band. There was no immediate complication. Patient was returned to his room in stable condition. Of note, the patient received 5000 units of intravenous heparin as well as intra-arterial Verapamil. FINDINGS: LEFT MAIN: This is a short-sized vessel bifurcating into left circumflex, left anterior descending artery. Left main coronary artery has no evidence of high-grade stenosis. LEFT ANTERIOR DESCENDING ARTERY: This vessel is totally occluded proximally after the takeoff of a small diagonal branch with no significant antegrade flow. LEFT CIRCUMFLEX: This is a large nondominant vessel giving rise to a large obtuse marginal branch. There is retrograde filling of the graft through the obtuse marginal branch prior to the insertion of the graft. There is a 50% to 60% plaque. The rest of the vessel has no high-grade stenosis. RIGHT CORONARY ARTERY: This is a large dominant vessel bifurcating distally into PDA and posterolateral segment and branches. The mid RCA and the distal RCA stented segments are patent with no evidence of stent thrombosis with a BALAJI-3 flow. SAPHENOUS VENOUS VEIN GRAFT TO THE RIGHT CORONARY ARTERY: This graft is totally occluded. SAPHENOUS VEIN GRAFT TO THE DIAGONAL BRANCH: The proximal and distal anastomotic sites are patent. There is no evidence of obstructive disease. The flow in the diagonal branch is brisk. MEDINA TO THE LAD WITH A Y-GRAFT TO THE OBTUSE MARGINAL BRANCH: Both grafts are open with brisk flow. Non-selective images were obtained, but selective images were obtained in December. LEFT VENTRICULOGRAM: Left ventriculogram was performed in 30-degree BANSAL view and revealed normal left ventricular size and systolic function, ejection fraction of 60%. There was no significant mitral regurgitation. HEMODYNAMICS: There was no gradient across the aortic valve. The left ventricular end-diastolic pressure was 10 mmHg. CONCLUSION: 1. Chronically occluded LAD. 2. Patent stents of the right coronary artery. 3. Mild to moderate disease in the left circumflex. 4. Patent MEDINA to LAD and Y-graft LAYNE to the obtuse marginal branch. 5. Patent saphenous vein graft to the diagonal branch. 6. Chronically occluded saphenous vein graft to the RCA. RECOMMENDATIONS: In view of the findings, I see no progression of disease compared to the prior procedure that was done recently. In view of that, I would recommend continued medical therapy. Depending on his progress, further recommendations will be made. Those findings and recommendations were discussed with the patient and his family, and they are in full understanding and agreement. Duration of procedure: 27 minutes. MMJOONL / LINGN: [id number] /
== END 2019-01-16 17:05 | disposition home or self-care (01) ==
LOC: EC 10:19 → 1SOBS 12:02
PROVIDERS: ADMIT Family Medicine; ATTEND Family Medicine
DX: I25.710 Atherosclerosis of autologous vein coronary artery bypass graft(s) with unstable angina pectoris (principal); I25.110 Atherosclerotic heart disease of native coronary artery with unstable angina pectoris; I25.82 Chronic total occlusion of coronary artery; I10 Essential (primary) hypertension; F41.9 Anxiety disorder, unspecified; E78.5 Hyperlipidemia, unspecified; L40.9 Psoriasis, unspecified; E66.9 Obesity, unspecified; Z68.41 Body mass index [BMI] 40.0-44.9, adult; R13.10 Dysphagia, unspecified; Z79.02 Long term (current) use of antithrombotics/antiplatelets; Z79.82 Long term (current) use of aspirin; Z79.51 Long term (current) use of inhaled steroids; Z79.899 Other long term (current) drug therapy; Z88.8 Allergy status to other drugs, medicaments and biological substances; Z95.5 Presence of coronary angioplasty implant and graft; Z95.1 Presence of aortocoronary bypass graft; Z81.8 Family history of other mental and behavioral disorders
CPT/HCPCS: 99285; 36415; 94640 ×2; 93005; 93459; 85379; 84439; 80061; 80053; 84443; 83735; 84484; 85025; 85610; 85730; 71046; 71260; G0378 ×3; C1769 ×2; C1894; J2001; J3010; J1644; Q9967 ×2

== ENCOUNTER 2019-02-09 13:30 | Emergency (ER) | payer BC ==
[2019-02-09 13:42] VITALS: TEMP 98
[2019-02-09] MEDS ORDERED: SODIUM CHLORIDE 0.9% 1,000 ML IV STA (13:50)
--- NOTE | 2019-02-09 14:04 | ED ---
Arrhythmia/Palpitations HPI - General Chief Complaint: Arrhythmia/Palpitations Stated Complaint: Arrhythmia Time Seen by Provider: 02/09/19 13:48 Source: patient, RN notes reviewed, old records reviewed Mode of arrival: ambulatory Limitations: no limitations - History of Present Illness Initial Comments: This is a 54-year-old male the ER for evaluation. Patient resents today for evaluation regards to he does present now with palpitations. Patient denies chest pain or shortness of breath no recent travel or sick contacts. No change in medications denies drugs or alcohol. No shortness of breath currently palpitations have resolved MD Complaint: palpitations -: hour(s) Context: occurred during rest Associated Symptoms: denies other symptoms - Related Data Home Medications Medication Instructions Recorded Confirmed Cholecalciferol [Vitamin D3 (25 1,000 unit PO DAILY 08/18/16 02/09/19 Mcg = 1000 Iu)] Aspirin EC [Ecotrin Low Dose] 81 mg PO DAILY 10/30/16 02/09/19 Carvedilol [Coreg*] 6.25 mg PO BID 12/21/18 02/09/19 Previous Rx's Medication Instructions Recorded Atorvastatin [Lipitor] 40 mg PO DAILY #30 tab 08/31/16 Clopidogrel [Plavix] 75 mg PO DAILY #90 tab 12/23/18 Nitroglycerin Sl Tabs [Nitrostat] 0.4 mg SUBLINGUAL Q5M PRN #25 tab 12/23/18 Allergies Allergy/AdvReac Type Severity Reaction Status Date / Time nitroglycerin AdvReac sweating Verified 02/09/19 14:08 and lightheaded Review of Systems ROS Statement: Those systems with pertinent positive or pertinent negative responses have been documented in the HPI. ROS Other: All systems not noted in ROS Statement are negative. 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 3 stents paced middle of december 2018 Past Anesthesia/Blood Transfusion Reactions: No Reported Reaction Date of Last Stent Placement:: 12/22/18 Past Psychological History: No Psychological Hx Reported Smoking Status: Never smoker Past Alcohol Use History: Occasional Past Drug Use History: None Reported - Past Family History Father Additional Family Medical History / Comment(s): FROM SUICIDE Mother Family Medical History: No Reported History Additional Family Medical History / Comment(s): MOM IS 90 AND HEALTHY General Exam Limitations: no limitations General appearance: alert, in no apparent distress Head exam: Present: atraumatic, normocephalic, normal inspection Eye exam: Present: normal appearance, PERRL, EOMI. Absent: scleral icterus, conjunctival injection, periorbital swelling ENT exam: Present: normal exam, mucous membranes moist Neck exam: Present: normal inspection. Absent: tenderness, meningismus, lymphadenopathy Respiratory exam: Present: normal lung sounds bilaterally. Absent: respiratory distress, wheezes, rales, rhonchi, stridor Cardiovascular Exam: Present: regular rate, normal rhythm, normal heart sounds. Absent: systolic murmur, diastolic murmur, rubs, gallop, clicks GI/Abdominal exam: Present: soft, normal bowel sounds. Absent: distended, tenderness, guarding, rebound, rigid Extremities exam: Present: normal inspection, full ROM, normal capillary refill. Absent: tenderness, pedal edema, joint swelling, calf tenderness Back exam: Present: normal inspection Neurological exam: Present: alert, oriented X3, CN II-XII intact Psychiatric exam: Present: normal affect, normal mood Skin exam: Present: warm, dry, intact, normal color. Absent: rash Course Vital Signs 02/09/19 02/09/19 02/09/19 13:39 14:11 15:00 Temperature 98.0 F Pulse Rate 64 56 L 56 L Respiratory 18 18 16 Rate Blood Pressure 124/73 109/84 119/75 O2 Sat by Pulse 96 95 99 Oximetry 02/09/19 15:30 Temperature Pulse Rate 54 L Respiratory 16 Rate Blood Pressure 120/81 O2 Sat by Pulse 99 Oximetry EKG Findings - EKG Comments: EKG Findings:: EKG shows sinus rhythm rate of 61, IL 144, QRS 66, QTc 388 Medical Decision Making - Medical Decision Making 54 male the ER for evaluation of palpitations. No findings here in the ER patient can be discharged home - Lab Data Result diagrams: 02/09/19 14:00 02/09/19 14:00 Lab Results 02/09/19 02/09/19 02/09/19 Range/Units 14:00 14:00 14:00 WBC 7.5 (3.8-10.6) k/uL RBC 5.00 (4.30-5.90) m/uL Hgb 15.0 (13.0-17.5) gm/dL Hct 45.2 (39.0-53.0) % MCV 90.4 (80.0-100.0) fL MCH 30.0 (25.0-35.0) pg MCHC 33.2 (31.0-37.0) g/dL RDW 12.9 (11.5-15.5) % Plt Count 205 (150-450) k/uL Neutrophils % 67 % Lymphocytes % 22 % Monocytes % 6 % Eosinophils % 2 % Basophils % 0 % Neutrophils # 5.0 (1.3-7.7) k/uL Lymphocytes # 1.7 (1.0-4.8) k/uL Monocytes # 0.5 (0-1.0) k/uL Eosinophils # 0.2 (0-0.7) k/uL Basophils # 0.0 (0-0.2) k/uL PT (9.0-12.0) sec INR (<1.2) APTT (22.0-30.0) sec D-Dimer (<0.60) mg/L FEU Sodium 140 (137-145) mmol/L Potassium 4.6 (3.5-5.1) mmol/L Chloride 107 (98-107) mmol/L Carbon Dioxide 26 (22-30) mmol/L Anion Gap 7 mmol/L BUN 17 (9-20) mg/dL Creatinine 0.86 (0.66-1.25) mg/dL Est GFR (CKD-EPI)AfAm >90 (>60 ml/min/1.73 sqM) Est GFR (CKD-EPI)NonAf >90 (>60 ml/min/1.73 sqM) Glucose 94 (74-99) mg/dL Plasma Lactic Acid Ariel 1.1 (0.7-2.0) mmol/L Calcium 9.9 (8.4-10.2) mg/dL Phosphorus 3.8 (2.5-4.5) mg/dL Magnesium 1.8 (1.6-2.3) mg/dL Total Bilirubin 0.5 (0.2-1.3) mg/dL AST 22 (17-59) U/L ALT 32 (21-72) U/L Alkaline Phosphatase 89 (38-126) U/L Troponin I (0.000-0.034) ng/mL NT-Pro-B Natriuret Pep pg/mL Total Protein 6.9 (6.3-8.2) g/dL Albumin 4.3 (3.5-5.0) g/dL TSH 1.740 (0.465-4.680) mIU/L 02/09/19 02/09/19 02/09/19 Range/Units 14:00 14:00 14:00 WBC (3.8-10.6) k/uL RBC (4.30-5.90) m/uL Hgb (13.0-17.5) gm/dL Hct (39.0-53.0) % MCV (80.0-100.0) fL MCH (25.0-35.0) pg MCHC (31.0-37.0) g/dL RDW (11.5-15.5) % Plt Count (150-450) k/uL Neutrophils % % Lymphocytes % % Monocytes % % Eosinophils % % Basophils % % Neutrophils # (1.3-7.7) k/uL Lymphocytes # (1.0-4.8) k/uL Monocytes # (0-1.0) k/uL Eosinophils # (0-0.7) k/uL Basophils # (0-0.2) k/uL PT 9.9 (9.0-12.0) sec INR 0.9 (<1.2) APTT 24.7 (22.0-30.0) sec D-Dimer 0.26 (<0.60) mg/L FEU Sodium (137-145) mmol/L Potassium (3.5-5.1) mmol/L Chloride (98-107) mmol/L Carbon Dioxide (22-30) mmol/L Anion Gap mmol/L BUN (9-20) mg/dL Creatinine (0.66-1.25) mg/dL Est GFR (CKD-EPI)AfAm (>60 ml/min/1.73 sqM) Est GFR (CKD-EPI)NonAf (>60 ml/min/1.73 sqM) Glucose (74-99) mg/dL Plasma Lactic Acid Ariel (0.7-2.0) mmol/L Calcium (8.4-10.2) mg/dL Phosphorus (2.5-4.5) mg/dL Magnesium (1.6-2.3) mg/dL Total Bilirubin (0.2-1.3) mg/dL AST (17-59) U/L ALT (21-72) U/L Alkaline Phosphatase (38-126) U/L Troponin I <0.012 (0.000-0.034) ng/mL NT-Pro-B Natriuret Pep 167 pg/mL Total Protein (6.3-8.2) g/dL Albumin (3.5-5.0) g/dL TSH (0.465-4.680) mIU/L Disposition Clinical Impression: Palpitations Disposition: HOME SELF-CARE Condition: Good Instructions (If sedation given, give patient instructions): Heart Palpitations (ED) Is patient prescribed a controlled substance at d/c from ED?: No Referrals: Krystian Khan MD [Primary Care Provider] - 1-2 days
[2019-02-09 14:30] LABS: Basophils % (A) 0 %; Eosinophils # (A) 0.2 k/uL (0-0.7); Eosinophils % (A) 2 %; HCT 45.2 % (39.0-53.0); Lymphocytes # (A) 1.7 k/uL (1.0-4.8); Lymphocytes % (A) 22 %; MCHC 33.2 g/dL (31.0-37.0); MCV 90.4 fL (80.0-100.0); Mean Platelet Volume 7.1; Monocytes # (A) 0.5 k/uL (0-1.0); Monocytes % (A) 6 %; Neutrophils % (A) 67 %; Platelet Count 205 k/uL (150-450); RDW 12.9 % (11.5-15.5); WBC 7.5 k/uL (3.8-10.6)
[2019-02-09 14:34] LABS: ALT 32 U/L (21-72); AST 22 U/L (17-59); Albumin 4.3 g/dL (3.5-5.0); Alkaline Phosphatase 89 U/L (38-126); Anion Gap 7 mmol/L; Blood Urea Nitrogen 17 mg/dL (9-20); Calcium 9.9 mg/dL (8.4-10.2); Carbon Dioxide 26 mmol/L (22-30); Chloride 107 mmol/L (98-107); Glucose 94 mg/dL (74-99); Magnesium 1.8 mg/dL (1.6-2.3); Phosphorus 3.8 mg/dL (2.5-4.5); Potassium 4.6 mmol/L (3.5-5.1); Sodium 140 mmol/L (137-145); Total Bilirubin 0.5 mg/dL (0.2-1.3); Total Protein 6.9 g/dL (6.3-8.2)
[2019-02-09 14:36] LABS: D-Dimer 0.26 mg/L FEU (<0.60); INR 0.9 (<1.2); Partial Thromboplastin Time 24.7 sec (22.0-30.0); Prothrombin Time 9.9 sec (9.0-12.0)
[2019-02-09 15:07] VITALS: RESP 16
[2019-02-09 15:46] VITALS: BP 120/81; PULSE 54
== END 2019-02-09 15:44 | disposition home or self-care (01) ==
LOC: EC 13:30
DX: R00.2 Palpitations (principal); I25.119 Atherosclerotic heart disease of native coronary artery with unspecified angina pectoris; Z79.82 Long term (current) use of aspirin; Z79.899 Other long term (current) drug therapy; Z88.8 Allergy status to other drugs, medicaments and biological substances; Z95.1 Presence of aortocoronary bypass graft; Z95.5 Presence of coronary angioplasty implant and graft
CPT/HCPCS: 36415; 80053; 83605; 83735; 83880; 84100; 84443; 84484; 85025; 85379; 85610; 85730; 93005; 96360; 99285

== ENCOUNTER → 2020-04-08 | Outpatient (CLI) | payer OTHER ==
[~2020-04-08] MED LIST changes: -ALPRAZolam 0.25 MG TAB PO PRN; -ALPRAZolam 0.5 MG TAB PO PRN; -ASPIRIN 325 MG TAB PO STA; -ATORVASTATIN 80 MG TAB PO STA; -NITROGLYCERIN SL TABS 0.4 MG TAB SUBLINGUAL PRN; +REGADENOSON 0.4 MG/5 ML SYRINGE IV ONE; -SODIUM CHLORIDE 0.9% 1,000 ML in EMPTY BAG 1 BAG IV ONE
--- NOTE | 2020-04-08 12:00 | ECHOF ---
Referral Reason:I25.10 CAD MEASUREMENTS -------- HEIGHT: 170.2 cm WEIGHT: 127.0 kg BP: RVIDd: 4.7 cm (< 3.3) IVSd: 1.5 cm (0.6 - 1.1) LVIDd: 4.9 cm (3.9 - 5.3) LVPWd: 1.6 cm (0.6 - 1.1) IVSs: 2.0 cm LVIDs: 3.3 cm LVPWs: 2.0 cm LAESV Index (A-L): 29.71 ml/m Ao Diam: 3.4 cm (2.0 - 3.7) AV Cusp: 2.4 cm (1.5 - 2.6) MV EXCURSION: 17.332 mm (> 18.000) MV EF SLOPE: 101 mm/s (70 - 150) EPSS: 0.5 cm MV E Trung: 0.95 m/s MV DecT: 219 ms MV A Trung: 0.69 m/s MV E/A Ratio: 1.38 RAP: 5.00 mmHg RVSP: 34.27 mmHg FINDINGS -------- This was a technically difficult study with suboptimal apical views. Morbid Obesity The left ventricular size is normal. There is moderate concentric left ventricular hypertrophy. O verall left ventricular systolic function is low-normal with, an EF between 50 - 55 %. The diastoli c filling pattern is normal for the age of the patient {E/E'}. Septal wall motion is delayed and co nsistent with prior cardiac surgery. The right ventricle is moderate to severely enlarged. Normal LA size by volume 22+/-6 ml/m2. The right atrium is moderately enlarged. 5.0mg of Lumason was utilized for enhancement of images Interatrial and interventricular septum intact. The aortic valve is trileaflet and appears structurally normal. There is no evidence of aortic regu rgitation. There is no evidence of aortic stenosis. No mitral regurgitation. Mild tricuspid regurgitation present. There is mild pulmonary hypertension. The right ventricular systolic pressure, as measured by Doppler, is 34.27mmHg. There is no pulmonic regurgitation present. The aortic root size is normal. IVC Not well visulized. There is no pericardial effusion. CONCLUSIONS -------- 1. This was a technically difficult study with suboptimal apical views. 2. Morbid Obesity 3. The left ventricular size is normal. 4. There is moderate concentric left ventricular hypertrophy. 5. Overall left ventricular systolic function is low-normal with, an EF between 50 - 55 %. 6. The diastolic filling pattern is normal for the age of the patient {E/E'} 7. Septal wall motion is delayed and consistent with prior cardiac surgery. 8. The right ventricle is moderate to severely enlarged. 9. Normal LA size by volume 22+/-6 ml/m2. 10. The right atrium is moderately enlarged. 11. 5.0mg of Lumason was utilized for enhancement of images 12. Interatrial and interventricular septum intact. 13. The aortic valve is trileaflet and appears structurally normal. 14. There is no evidence of aortic regurgitation. 15. There is no evidence of aortic stenosis. 16. No mitral regurgitation. 17. Mild tricuspid regurgitation present. 18. There is mild pulmonary hypertension. 19. The right ventricular systolic pressure, as measured by Doppler, is 34.27mmHg. 20. There is no pulmonic regurgitation present. 21. The aortic root size is normal. 22. IVC Not well visulized. 23. There is no pericardial effusion. TRIAL EXAMINER: Charity Stanford RDCS
--- NOTE | 2020-04-08 12:37 | EST ---
EXERCISE STRESS DATE OF SERVICE: 04/08/2020 AGE: 55 SEX: M HT: 67" WT: 280 lbs PROTOCOL: Lexiscan Cardiolite STAGE: DURATION OF EXERCISE: HEART RATE REST: 51 BLOOD PRESSURE REST: 123/69 MAXIMUM HEART RATE ACHIEVED: 66 MAXIMUM BLOOD PRESSURE: 114/69 85% MPHR: 139 100% MPHR: 163 METS: INDICATIONS: Chest pain. REFERRING PHYSICIANS: Dr. Khan. STRESS DATA: Heart rate is 51, pressure is 123/69 mmHg. Baseline EKG showed sinus mechanism. 0.4 mg of Lexiscan given over 15 seconds per protocol. Max heart rate was 66 beats per minute and maximum pressure was 123/69 mmHg. Clinically the patient did not have no symptoms and the EKG did not show any significant ST or T-wave abnormalities concerning for ischemia. CONCLUSION: 1. Nondiagnostic electrocardiogram stress testing in response to Lexiscan. 2. Please follow up on the Cardiolite portion on separate report from Radiology department. MMODL / IJN: [id number] /
--- NOTE | 2020-04-08 13:01 | NM ---
EXAMINATION TYPE: NM stress lexiscan cardiolite DATE OF EXAM: 04/08/2020 COMPARISON: NONE HISTORY: Precordial chest pain and abnormal EKG TECHNIQUE: After the intravenous administration of 9.3 mCi Tc 99m Sestamibi - Cardiolite resting SPE CT images acquired 75 minutes post injection. The patient received 0.4mg Lexiscan, 23.3 mCi Tc 99m Sestamibi - Stress images obtained [address] injection FINDINGS: Review of stress and rest SPECT images demonstrates reversible ischemic change involving the cardiac apex at its anterolateral apical wall as well as the lateral wall. Correlate clinically. Gated analys is shows normal wall motion with an estimated left ventricular ejection fraction of 56 %. IMPRESSION: scintigraphic evidence for reversible ischemia.
== END | disposition home or self-care (01) ==
LOC: RADECHMAIN 08:09
PROVIDERS: ATTEND Family Medicine
DX: I25.10 Atherosclerotic heart disease of native coronary artery without angina pectoris (principal); I27.20 Pulmonary hypertension, unspecified; E66.01 Morbid (severe) obesity due to excess calories; I07.1 Rheumatic tricuspid insufficiency
CPT/HCPCS: 93017; 93306; 78452; A9500; J2785; Q9950

== ENCOUNTER 2021-07-17 13:02 | Inpatient (IN) | payer OTHER, SELFPAY ==
[2021-07-17 14:04] LABS: Basophils % (A) 0 %; Eosinophils % (A) 0 %; HCT 45.6 % (39.0-53.0); HGB 15.4 gm/dL (13.0-17.5); Lymphocytes # (A) 1.5 k/uL (1.0-4.8); Lymphocytes % (A) 9 %; MCH 30.7 pg (25.0-35.0); MCHC 33.7 g/dL (31.0-37.0); Mean Platelet Volume 7.7; Monocytes # (A) 0.9 k/uL (0-1.0); Monocytes % (A) 6 %; Neutrophils # (A) 13.5 k/uL (1.3-7.7); Neutrophils % (A) 84 %; Platelet Count 223 k/uL (150-450); RBC 5.01 m/uL (4.30-5.90); RDW 12.4 % (11.5-15.5); WBC 16.1 k/uL (3.8-10.6)
[2021-07-17 14:26] LABS: ALT 24 U/L (4-49); AST 21 U/L (17-59); African American GFR (CKD) >90 (>60 ml/min/1.73 sqM); Albumin 4.2 g/dL (3.5-5.0); Alkaline Phosphatase 68 U/L (38-126); Anion Gap 7 mmol/L; Blood Urea Nitrogen 18 mg/dL (9-20); Calcium 9.7 mg/dL (8.4-10.2); Carbon Dioxide 28 mmol/L (22-30); Chloride 104 mmol/L (98-107); Glucose 109 mg/dL (74-99); Magnesium 1.8 mg/dL (1.6-2.3); Non-African American GFR(CKD) 87 (>60 ml/min/1.73 sqM); Potassium 4.1 mmol/L (3.5-5.1); Sodium 139 mmol/L (137-145); Total Bilirubin 0.4 mg/dL (0.2-1.3); Total Protein 6.8 g/dL (6.3-8.2)
[2021-07-17 14:46] LABS: Partial Thromboplastin Time 22.6 sec (22.0-30.0)
--- NOTE | 2021-07-17 14:57 | XR ---
EXAMINATION TYPE: XR chest 2V DATE OF EXAM: 07/17/2021 COMPARISON: 01/15/2019 TECHNIQUE: PA and lateral views submitted. HISTORY: Chest Pain FINDINGS: The lungs are clear and there is no pneumothorax, pleural effusion, or focal pneumonia. Heart is en larged and there is postoperative change. Biapical pleural thickening. Hyperinflation. Degenerative c hange of the spine. Bilateral pleural-based thickening. Ectasia of the aorta. Hypertrophic and degene rative change of the spine. IMPRESSION: 1. No acute process.
[2021-07-17] MEDS ORDERED: ASPIRIN 81 MG PO STA (18:22)
[2021-07-17] MEDS ORDERED: MORPHINE SULFATE 4 MG/ML SYRINGE IVP STA (18:23)
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
[2021-07-17] MEDS ORDERED: NALOXONE 0.4 MG/ML 1 ML VIAL IV PRN ×2 (19:31→19:34)
[2021-07-17] MEDS ORDERED: MORPHINE SULFATE 4 MG/ML SYRINGE IV PRN (19:34)
[2021-07-17] MEDS: carvediloL 6.25 MG TAB PO SCH (20:12)
[2021-07-17] MEDS ORDERED: HEPARIN SODIUM 1,000 UN/ML (10ML VL) IV PRN (21:12)
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
[2021-07-17] MEDS: HEPARIN SOD,PORK IN 0.45% NACL 25,000 UNIT in 0.45% NACL 1 250ML.BAG IV SCH (22:19)
[2021-07-18 04:04] LABS: Partial Thromboplastin Time 23.1 sec (22.0-30.0); Prothrombin Time 10.6 sec (9.0-12.0)
[2021-07-18 04:14] LABS: African American GFR (CKD) >90 (>60 ml/min/1.73 sqM); Anion Gap 9 mmol/L; Blood Urea Nitrogen 17 mg/dL (9-20); Calcium 9.1 mg/dL (8.4-10.2); Carbon Dioxide 26 mmol/L (22-30); Chloride 103 mmol/L (98-107); Glucose 109 mg/dL (74-99); Non-African American GFR(CKD) >90 (>60 ml/min/1.73 sqM); Potassium 4.5 mmol/L (3.5-5.1); Sodium 138 mmol/L (137-145)
[2021-07-18] MEDS ORDERED: ATORVASTATIN 40 MG TAB PO SCH (09:00)
[2021-07-18 09:07] LABS: Basophils # (A) 0.02 X 10*3/uL (0.00-0.10); Basophils % (A) 0.2 %; Eosinophils # (A) 0 X 10*3/uL (0.04-0.35); Eosinophils % (A) 0 %; HCT 44.2 % (39.6-50.0); HGB 14.5 g/dL (13.0-17.0); Lymphocytes # (A) 1.24 X 10*3/uL (0.90-5.00); Lymphocytes % (A) 10.8 %; MCHC 32.8 g/dL (32.0-37.0); MCV 91.5 fL (80.0-97.0); Mean Platelet Volume 10.3 fL (9.5-12.2); Monocytes # (A) 0.67 X 10*3/uL (0.20-1.00); Monocytes % (A) 5.9 %; Neutrophils # (A) 9.47 X 10*3/uL (1.80-7.70); Neutrophils % (A) 82.8 %; Platelet Count 216 X 10*3/uL (140-440); RBC 4.83 X 10*6/uL (4.40-5.60); RDW 12.6 % (11.5-14.5); WBC 11.44 X 10*3/uL (4.50-10.00)
[2021-07-18] MEDS: ASPIRIN 81 MG PO SCH (09:36)
[2021-07-18] MEDS: amLODIPine 5 MG TAB PO SCH (09:36)
[2021-07-18] MEDS: carvediloL 6.25 MG TAB PO SCH ×2 (09:37→18:49)
[2021-07-18] MEDS: CLOPIDOGREL 75 MG TAB PO SCH (09:38)
[2021-07-18] MEDS: CHOLECALCIFEROL 25 MCG (1000 IU) TABLET PO SCH (09:38)
[2021-07-18] MEDS: DOXYCYCLINE 100 MG CAP PO SCH ×2 (09:38→21:04)
[2021-07-18] MEDS: EZETIMIBE 10 MG TAB PO SCH (09:38)
--- NOTE | 2021-07-18 14:00 | ECHOF ---
Referral Reason:chest pain MEASUREMENTS -------- HEIGHT: 170.2 cm WEIGHT: 127.0 kg BP: IVSd: 1.1 cm (0.6 - 1.1) LVIDd: 5.7 cm (3.9 - 5.3) LVPWd: 1.2 cm (0.6 - 1.1) EDV(Teich): 159 ml IVSs: 1.4 cm LVIDs: 3.1 cm LVPWs: 1.8 cm %IVS Thck: 31 % ESV(Teich): 39 ml EF(Teich): 75 % %FS: 45 % SV(Teich): 120 ml RVIDd: 4.1 cm (< 3.3) Ao Diam: 3.2 cm (2.0 - 3.7) LA Diam: 4.1 cm (2.7 - 3.8) AV Cusp: 2.1 cm (1.5 - 2.6) EPSS: 1.1 cm MV E Turng: 0.72 m/s MV DecT: 237 ms MV Dec [place]: 3.0 m/s MV A Trung: 0.62 m/s MV E/A Ratio: 1.17 MV PHT: 69 ms MR Vmax: 1.06 m/s MR maxP.48 mmHg AV Vmax: 1.16 m/s AV maxP.39 mmHg TR Vmax: 3.34 m/s TR maxP.74 mmHg RAP: 5.00 mmHg RVSP: 49.74 mmHg MV EF SLOPE: 52.27 mm/s (70 - 150) MV EXCURSION: 8.98 mm (> 18.000) FINDINGS -------- This was a technically difficult study with suboptimal views. The left ventricular size is normal. Left ventricular wall thickness is normal. Overall left vent ricular systolic function is mildly impaired with, an EF between 45 - 50 %. There is paradoxical/dy synergic septal motion consistent with right ventricular volume overload and/or elevated right ventri cular end-diastolic pressure. The right ventricle is moderately enlarged. The left atrial size is normal. The right atrial size is normal. Lumason used The aortic valve is trileaflet and appears structurally normal. The mitral valve is normal. There is trace mitral regurgitation. The tricuspid valve appears structurally normal. Mild tricuspid regurgitation present. There is m oderate pulmonary hypertension. The right ventricular systolic pressure, as measured by Doppler, is 49.74mmHg. There is no pulmonic regurgitation present. The aortic root size is normal. IVC Not well visulized. There is no pericardial effusion. CONCLUSIONS -------- 1. The left ventricular size is normal. 2. Left ventricular wall thickness is normal. 3. Overall left ventricular systolic function is mildly impaired with, an EF between 45 - 50 %. 4. There is paradoxical/dysynergic septal motion consistent with right ventricular volume overload an d/or elevated right ventricular end-diastolic pressure. 5. The right ventricle is moderately enlarged. 6. There is trace mitral regurgitation. 7. Mild tricuspid regurgitation present. 8. There is moderate pulmonary hypertension. 9. The right ventricular systolic pressure, as measured by Doppler, is 49.74mmHg. 10. There is no pericardial effusion. X RAY DEVELOPER: Blanca Rucker RDCS
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
--- NOTE | 2021-07-18 18:29 | P.CRDCN ---
History of Present Illness Consult date: 07/18/21 Consult reason: chest pain History of present illness: This is Kwasi Miles NP dictating a consult on this patient on behalf of Dr. Flores. The patient was interviewed and examined. HPI: Patient is a pleasant 56-year-old male who initially presented to the hospital with chest pain and suspected angina. Patient reports that approximately one and a half to 2 weeks ago he started noticing tightness in his chest with exertion, moving up into his neck if he continued to exert himself. If he sat down and rested for 15 or 20 minutes, he noted the chest tightness would improve. Patient reports during these episodes that he would no flushing, palpitations, and some dizziness. Patient has a significant cardiac history with a quadruple bypass 5 years ago, CAD, and stent placements. Patient's initial troponins have been negative. Current medications include amlodipine, carvedilol, heparin, and atorvastatin. Patient is currently denying chest pain, shortness of breath, and heart palpitations. ROS: [No fever, chills, or rigors] [no cough, phlegm, or expectoration] [no nausea, vomiting, or diarrhea] [no hematuria, dysuria] [no musculoskelatal complaints] [no strokes or seizures] [no skin lesions] EXAMINATION: GENERAL: Well-appearing, well-nourished and in no acute distress. NECK: Supple without JVD or thyromegaly. LUNGS: Breath sounds clear to auscultation bilaterally. Respiration equal and u nlabored. No wheezes, rales or rhonchi. HEART: Regular rate and rhythm without murmurs, rubs or gallops. S1 and S2 heard. EXTREMITIES: Normal range of motion, no edema. No clubbing or cyanosis. Pe ripheral pulses intact and strong. REVIEW OF LABS, ECG & MEDICAL DATA: LABS: White count 11.44, PT 10.6, INR 1.0, APTT 23.1, d-dimer less than 0.17, sodium 138, potassium 4.5, BUN 17, creatinine 0.83, serial troponins 3 less than 0.012 EKG: EKG dated 07/17/2021 demonstrates normal sinus rhythm. Review of telemetry strips demonstrates patient currently in sinus bradycardia with a heart rate around 59. IMAGING: Echocardiogram dated for today demonstrates a left ventricular size is normal, left ventricular wall thickness is normal, overall left ventricular systolic function is mildly impaired with an ejection fraction between 45 and 50%, there is paradoxical/dyssynergy septal motion consistent with right ventricular volume overload and/or elevated right ventricular and diastolic pressure, right ventricle is moderately enlarged, there is trace mitral regurgitation, mild tricuspid regurgitation is present there is moderate pulmonary hypertension, right ventricular systolic pressure is measured by the Doppler is 49.74 mmHg, and no pericardial effusion. VITALS: Temp 97.4, pulse of 54, respiratory rate 18, blood pressure 152/87, O2 saturation 98% on room air. IMPRESSION/PLAN: 1. Chest pain-due to patient's significant cardiac history and description of current chest discomfort and tightness, we will schedule the patient for a cardiac cath on Tuesday. 2. Hyperlipidemia-increase atorvastatin 80 mg daily. Further recommendations pending patient's clinical course Thank you for the consult and allowing us to participate in the care of this patient. 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 3 stents paced middle of december 2018 Past Anesthesia/Blood Transfusion Reactions: No Reported Reaction Date of Last Stent Placement:: 12/22/18 Past Psychological History: No Psychological Hx Reported Additional Psychological History / Comment(s): Pt resides with his spouse and children. He is retired. He is independent. Smoking Status: Never smoker Past Alcohol Use History: Occasional Past Drug Use History: None Reported - Past Family History Father Additional Family Medical History / Comment(s): FROM SUICIDE Mother Family Medical History: No Reported History Additional Family Medical History / Comment(s): MOM IS 90 AND HEALTHY Medications and Allergies Home Medications Medication Instructions Recorded Confirmed Type Cholecalciferol [Vitamin D3 (25 1,000 unit PO DAILY 08/18/16 07/17/21 History Mcg = 1000 Iu)] Atorvastatin [Lipitor] 40 mg PO DAILY #30 tab 08/31/16 07/17/21 Rx Aspirin EC [Ecotrin Low Dose] 81 mg PO DAILY 10/30/16 07/17/21 History Clopidogrel [Plavix] 75 mg PO DAILY #90 tab 12/23/18 07/17/21 Rx Carvedilol [Coreg] 3.125 mg PO BID 07/17/21 07/17/21 History Doxycycline Hyclate 100 mg PO BID 07/17/21 07/17/21 History Ezetimibe [Zetia] 10 mg PO DAILY 07/17/21 07/17/21 History Nitroglycerin Sl Tabs [Nitrostat] 0.4 mg SL Q5M PRN 07/17/21 07/17/21 History Sildenafil [Revatio] 20 mg PO DAILY PRN 07/17/21 07/17/21 History amLODIPine [Norvasc] 5 mg PO DAILY 07/17/21 07/17/21 History methylPREDNISolone [Medrol Dose See Taper PO DIRECTED 07/17/21 07/17/21 History Pack] Allergies Allergy/AdvReac Type Severity Reaction Status Date / Time No Known Allergies Allergy Unverified 07/17/21 20:04 Physical Exam Vitals: Vital Signs Temp Pulse Pulse Resp BP BP Pulse Ox 07/18/21 14:26 97.4 F L 54 L 18 152/87 98 07/18/21 08:33 98.1 F 50 L 14 142/78 96 07/18/21 01:15 97.7 F 52 L 16 129/78 95 07/17/21 23:00 98.3 F 50 L 18 132/65 96 07/17/21 22:00 51 L 20 134/83 99 07/17/21 20:00 54 L 18 134/85 95 07/17/21 18:48 49 L 20 137/41 97 Intake and Output 07/18/21 07/18/21 07/18/21 06:59 14:59 22:59 Intake Total 480 Output Total 1 Balance 479 Intake: Oral 480 Output: Stool 1 Other: Voiding Method Toilet # Voids 1 2 Results 07/18/21 03:25 07/18/21 03:25 Cardiac Enzymes 07/17/21 07/17/21 07/18/21 Range/Units 19:03 22:31 03:25 Troponin I <0.012 <0.012 <0.012 (0.000-0.034) ng/mL Coagulation 07/18/21 Range/Units 03:25 PT 10.6 (9.0-12.0) sec APTT 23.1 (22.0-30.0) sec CBC 07/18/21 Range/Units 03:25 WBC 11.44 H (4.50-10.00) X 10*3/uL RBC 4.83 (4.40-5.60) X 10*6/uL Hgb 14.5 (13.0-17.0) g/dL Hct 44.2 (39.6-50.0) % Plt Count 216 (140-440) X 10*3/uL Comprehensive Metabolic Panel 07/18/21 Range/Units 03:25 Sodium 138 (137-145) mmol/L Potassium 4.5 (3.5-5.1) mmol/L Chloride 103 (98-107) mmol/L Carbon Dioxide 26 (22-30) mmol/L BUN 17 (9-20) mg/dL Creatinine 0.83 (0.66-1.25) mg/dL Glucose 109 H (74-99) mg/dL Calcium 9.1 (8.4-10.2) mg/dL Current Medications Generic Name Dose Route Start Last Admin Trade Name Freq PRN Reason Stop Dose Admin Amlodipine Besylate 5 mg 07/18/21 09:00 07/18/21 09:36 Amlodipine 5 Mg Tab PO 5 mg DAILY KAREN Administration Aspirin 81 mg 07/18/21 09:00 07/18/21 09:36 Aspirin 81 Mg PO 81 mg DAILY KAREN Administration Atorvastatin Calcium 40 mg 07/18/21 09:00 07/18/21 10:07 Atorvastatin 40 Mg Tab PO 40 mg DAILY KAREN Administration Carvedilol 6.25 mg 07/17/21 21:00 07/18/21 09:37 Carvedilol 6.25 Mg Tab PO 3.125 mg BID-W/MEALS KAREN Administration Cholecalciferol 25 mcg 07/18/21 09:00 07/18/21 09:38 Cholecalciferol 25 Mcg (1000 Iu) Tablet PO 25 mcg DAILY KAREN Administration Clopidogrel Bisulfate 75 mg 07/18/21 09:00 10/09/21 09:38 Clopidogrel 75 Mg Tab PO 75 mg DAILY KAREN Administration Doxycycline Monohydrate 100 mg 07/18/21 09:00 07/18/21 09:38 Doxycycline 100 Mg Cap PO 07/23/21 23:00 100 mg BID KAREN Administration Ezetimibe 10 mg 07/18/21 09:00 07/18/21 09:38 Ezetimibe 10 Mg Tab PO 10 mg DAILY KAREN Administration Heparin Sodium (Porcine) 0 unit 07/17/21 21:12 Heparin Sodium 1,000 Un/Ml (10ml Vl) IV PER PROTOCOL PRN Low PTT Protocol Heparin Sodium/Sodium Chloride 250 mls @ 10 mls/hr 07/17/21 21:15 07/17/21 22:19 25,000 unit/ Sodium Chloride IV Not Given .Q24H [facility] Protocol 7.874 UNITS/KG/HR Morphine Sulfate 4 mg 07/17/21 19:34 Morphine Sulfate 4 Mg/Ml Syringe IV Q4HR PRN Severe Pain Naloxone HCl 0.2 mg 07/17/21 19:31 Naloxone 0.4 Mg/Ml 1 Ml Vial IV Q2M PRN Opioid Reversal Intake and Output 07/18/21 07/18/21 07/18/21 06:59 14:59 22:59 Intake Total 480 Output Total 1 Balance 479 Intake: Oral 480 Output: Stool 1 Other: Voiding Method Toilet # Voids 1 2 07/18/21 03:25 07/18/21 03:25
[2021-07-18] MEDS: HEPARIN SOD,PORK IN 0.45% NACL 25,000 UNIT in 0.45% NACL 1 250ML.BAG IV SCH (20:16)
[2021-07-19] MEDS: DOXYCYCLINE 100 MG CAP PO SCH ×2 (07:33→21:00)
[2021-07-19] MEDS: ASPIRIN 81 MG PO SCH (07:33)
[2021-07-19] MEDS: amLODIPine 5 MG TAB PO SCH (07:33)
[2021-07-19] MEDS: CLOPIDOGREL 75 MG TAB PO SCH (07:34)
[2021-07-19] MEDS: CHOLECALCIFEROL 25 MCG (1000 IU) TABLET PO SCH (07:34)
[2021-07-19] MEDS: EZETIMIBE 10 MG TAB PO SCH (07:34)
[2021-07-19] MEDS ORDERED: ATORVASTATIN 80 MG TAB PO SCH (09:00)
[2021-07-19] MEDS: carvediloL 6.25 MG TAB PO SCH ×2 (11:01→16:31)
[2021-07-19] MEDS: carvediloL 3.125 MG TAB PO SCH ×2 (13:12→21:00)
[2021-07-19] MEDS ORDERED: NITROGLYCERIN SL TABS 0.4 MG TAB SUBLINGUAL PRN (14:45)
[2021-07-19] MEDS ORDERED: ALPRAZolam 0.25 MG TAB PO PRN (14:45)
[2021-07-19] MEDS ORDERED: ALPRAZolam 0.5 MG TAB PO PRN (14:45)
--- NOTE | 2021-07-19 14:47 | P.PN ---
Subjective Progress Note Date: 07/19/21 Principal diagnosis: Chest pain This is Kwasi suarez NP, dictating a progress note on behalf of Dr. Flores. Patient was interviewed and examined. Patient is a pleasant 56-year-old male who initially presented to the hospital with chest pain and suspected angina. Patient reports that approximately one and a half to 2 weeks ago he started noticing tightness in his chest with exertion, moving up into his neck if he continued to exert himself. If he sat down and rested for 15 or 20 minutes, he noted the chest tightness would improve. Patient reports during these episodes that he would no flushing, palpitations, and some dizziness. Patient has a significant cardiac history with a quadruple bypass 5 years ago, CAD, and stent placements. Patient's in itial troponins have been negative. Current medications include amlodipine, carvedilol, heparin, and atorvastatin. Patient is currently denying chest pain, shortness of breath, and heart palpitations. 07/19/2021: Patient has no complaints of chest pain or discomfort today. Echocardiogram demonstrated patient's EF of 45-50%. Patient will be scheduled for a cardiac cath with Dr. Golden on Tuesday. GENERAL: Well-appearing, well-nourished and in no acute distress. NECK: Supple without JVD or thyromegaly. LUNGS: Breath sounds clear to auscultation bilaterally. Respiration equal and unlabored. No wheezes, rales or rhonchi. HEART: Regular rate and rhythm without murmurs, rubs or gallops. S1 and S2 heard. EXTREMITIES: Normal range of motion, no edema. No clubbing or cyanosis. Peripheral pulses intact and strong. VITALS: [Temp 97.8, pulse rate 49, respirations 18, blood pressure 161/69, O2 sat 95% on room air] TELEMETRY: [Sinus bradycardia] LABS: [White count 11.4, hemoglobin 14.5, DT 10.6, INR 1.0, APTT 23.1, d-dimer is less than 0.17, sodium 138, potassium 4.5, BUN 17, creatinine 0.83, calcium 9.1, serial troponins 3-less than 0.012, less than 0.012, less than 0.012.] IMPRESSION/PLAN: 1. Chest pain-patient will be scheduled for cardiac cath tomorrow. Nothing by mouth after midnight. Objective - Vital Signs Vital signs: Vital Signs Temp 97.8 F 07/19/21 07:00 Pulse 49 L 07/19/21 13:53 Resp 18 07/19/21 13:53 BP 161/69 07/19/21 07:00 Pulse Ox 95 07/19/21 07:00 Intake & Output 07/18/21 07/19/21 07/19/21 18:59 06:59 18:59 Intake Total 720 300 Output Total 1 1 Balance 719 299 Intake: Oral 720 300 Output: Stool 1 1 Other: Voiding Method Toilet Toilet # Voids 1 1 3 - Labs CBC & Chem 7: 07/18/21 03:25 07/18/21 03:25
[2021-07-19] MEDS: SODIUM CHLORIDE 0.9% 1,000 ML in EMPTY BAG 1 BAG IV SCH (15:55)
--- NOTE | 2021-07-19 18:19 | PN ---
PROGRESS NOTE DATE OF SERVICE: 07/19/2021 This 56-year-old gentleman admitted with chest pain is evaluated by Cardiology and recommended cardiac catheterization tomorrow. No chest pain. No palpitations. No fever. PHYSICAL EXAMINATION: Alert and oriented x3. Pulse 52, blood pressure 120/74, respirations 16, temperature 97.7, pulse ox 94% on room air. HEENT: Conjunctivae normal. Oral mucosa moist. NECK: No jugular venous distention. No lymph node enlargement. CARDIOVASCULAR: S1, S2, muffled. No S3, no S4, RESPIRATORY: Diminished breath sounds at the bases. No rhonchi, no crackles. ABDOMEN: Soft. NERVOUS SYSTEM: No focal deficits. LABS: WBC 11.44. BMP noted. COVID-19 is negative. ASSESSMENT: 1. Chest pain, possible unstable angina, myocardial infarction ruled out. 2. Elevated WBC, most probably reactive. 3. Reduced left ventricular systolic function with possible cardiomyopathy. 4. History of trace mitral regurgitation. 5. History of CAD, CABG, stent. 6. History of palpitations. 7. History of psoriasis. 8. History of smoking cessation. 9. History of hernia repair. 10.History of tendon surgery. RECOMMENDATIONS AND DISCUSSION: Recommend to continue current management and symptomatic treatment. Otherwise, follow closely with Cardiology. A 2D echo with Doppler was done which showed ejection fraction of 45-50%. MMODL / IJN: [id number] /
[2021-07-19] MEDS: HEPARIN SOD,PORK IN 0.45% NACL 25,000 UNIT in 0.45% NACL 1 250ML.BAG IV SCH (20:58)
[2021-07-20] MEDS: SODIUM CHLORIDE 0.9% 1,000 ML in EMPTY BAG 1 BAG IV SCH ×4 (00:43→20:04)
[2021-07-20] MEDS ORDERED: ASPIRIN 325 MG TAB PO ONE (06:00)
[2021-07-20] MEDS ORDERED: ATORVASTATIN 80 MG TAB PO ONE (06:00)
[2021-07-20] MEDS: carvediloL 3.125 MG TAB PO SCH ×2 (06:12→17:06)
[2021-07-20] MEDS: EZETIMIBE 10 MG TAB PO SCH (06:12)
[2021-07-20] MEDS: amLODIPine 5 MG TAB PO SCH (06:12)
[2021-07-20] MEDS: DOXYCYCLINE 100 MG CAP PO SCH ×2 (06:12→20:04)
[2021-07-20] MEDS: CHOLECALCIFEROL 25 MCG (1000 IU) TABLET PO SCH (06:12)
[2021-07-20] MEDS ORDERED: HEPARIN SODIUM,PORCINE 2,500 UNIT in SODIUM CHLORIDE 0.9% 250 ML IRRIGATION PRN (07:00)
[2021-07-20] MEDS ORDERED: HEPARIN SODIUM,PORCINE 10,000 UNIT in SODIUM CHLORIDE 0.9% 1,000 ML IRRIGATION PRN (07:00)
[2021-07-20] MEDS: CLOPIDOGREL 75 MG TAB PO SCH (08:19)
[2021-07-20 09:25] LABS: MCH 30.7 pg (25.0-35.0); MCHC 33.5 g/dL (31.0-37.0); MCV 91.9 fL (80.0-100.0); Mean Platelet Volume 7.4; Platelet Count 198 k/uL (150-450); RBC 4.89 m/uL (4.30-5.90); RDW 12.3 % (11.5-15.5); WBC 9.5 k/uL (3.8-10.6)
[2021-07-20 10:00] LABS: African American GFR (CKD) >90 (>60 ml/min/1.73 sqM); Blood Urea Nitrogen 15 mg/dL (9-20); Carbon Dioxide 28 mmol/L (22-30); Chloride 104 mmol/L (98-107); Glucose 89 mg/dL (74-99); Non-African American GFR(CKD) >90 (>60 ml/min/1.73 sqM); Potassium 4.3 mmol/L (3.5-5.1)
[2021-07-20 10:13] LABS: Anion Gap 4 mmol/L; Sodium 136 mmol/L (137-145)
[2021-07-20] MEDS ORDERED: VERAPAMIL 2.5 MG/ML 2 ML AMP ONE (11:38)
[2021-07-20] MEDS ORDERED: LIDOCAINE 1% INJ 10MG/ML (20 ML MDV) ONE (11:38)
[2021-07-20] MEDS ORDERED: fentaNYL (PF) 50 MCG/ML 2 ML AMP ONE (11:59)
[2021-07-20] MEDS ORDERED: HEPARIN SODIUM 1,000 UN/ML (10ML VL) ONE (11:59)
[2021-07-20] MEDS ORDERED: IV FLUID CONTINUATION 1,000 ML IV ONE (12:00)
[2021-07-20] MEDS ORDERED: fentaNYL (PF) 50 MCG/ML 2 ML AMP IV ONE (12:15)
[2021-07-20] MEDS ORDERED: LIDOCAINE 1% INJ 10MG/ML (20 ML MDV) SQ ONE (12:18)
[2021-07-20] MEDS ORDERED: VERAPAMIL SYRINGE (5 MG/10 ML) INTRAARTER ONE (12:20)
[2021-07-20] MEDS ORDERED: HEPARIN SODIUM 1,000 UN/ML (10ML VL) IV ONE (12:26)
[2021-07-20] MEDS ORDERED: IOPAMIDOL-370 125ML BTL INJ ONE (12:38)
[2021-07-20] MEDS ORDERED: NITROGLYCERIN 1000MCG/10ML SYRINGE INTRACORON ONE (12:48)
[2021-07-20] MEDS ORDERED: IOPAMIDOL-370 100ML BTL INJ ONE (13:02)
[2021-07-20] MEDS ORDERED: ATROPINE SULFATE 0.1 MG/ML 10ML SYRINGE IV PRN (13:18)
[2021-07-20] MEDS ORDERED: ZOLPIDEM 5 MG TAB PO PRN (13:18)
[2021-07-20] MEDS ORDERED: RX INFO: IV CONTRAST WAS GIVEN 1 EACH MISC MISCELLANE PRN (13:18)
[2021-07-20] MEDS ORDERED: NITROGLYCERIN SL TABS 0.4 MG TAB SUBLINGUAL PRN (13:18)
[2021-07-20] MEDS ORDERED: MAG HYDROX/AL HYDROX/SIMETH 30 ML CUP PO PRN (13:18)
[2021-07-20] MEDS ORDERED: SODIUM CHLORIDE 0.9% 1,000 ML IV SCH (13:30)
--- NOTE | 2021-07-20 14:32 | PN ---
PROGRESS NOTE This is a gentleman who sees Dr. Golden apparently in the outpatient setting. He was seen by Dr. Flores and following the evaluation, given his presentation, he was advised cardiac catheterization. The patient at this time is resting comfortably without symptoms. His vitals are stable. There is no JVD or carotid bruit. S1-S2 heard normally. Lungs are clear. Abdomen is soft, nontender. Lower extremities reveal normal pulses. No edema. Central nervous system is normal. EKG revealed a sinus mechanism, no acute changes. There is right ventricular conduction delay. IMPRESSION: Chest pain, evaluated by Dr. Flores, advised cardiac catheterization, which is scheduled for today. RECOMMENDATIONS: Same medical regimen. Await the results of cardiac cath which will be performed by Dr. Golden shortly. Patient is fully aware of the details and rationale. MMODL / IJN: [id number] /
--- NOTE | 2021-07-20 14:38 | PTCA ---
PERCUTANEOUSTRANS CORORONARY ANGIOGRAPHY Mr. Dover is a 56-year-old male with known history of coronary artery disease who presented with new onset unstable angina pattern, underwent cardiac catheterization and was found to have critical stenosis in the distal right coronary artery and recommendation made regarding angioplasty and stenting. The procedure as well as the risks and the complications were discussed with the patient who is in full understanding and agreement. PROCEDURE: A 6-[place]izen [place] FR4 guiding catheter was introduced into the system. After cannulating the right coronary ostium, a 0.014 balanced medium weight J-wire was advanced across the lesion, positioned distally and then a 2.5 x 12 mm NC Trek balloon was advanced and two inflations at 8 atmospheres were done. Subsequently a 2.75 x 15 mm Xience Skypoint stent was advanced, deployed and was dilated at 16 atmospheres. After removing the balloon, a 3.0 x 12 mm NC Trek balloon was advanced and two inflations at 12 atmospheres were done. After the last inflation, after appropriate wait, the balloon and the guidewire were withdrawn back in the guiding catheter. Images were obtained, repeated. Those images reveal stable successful stenting. At that point, the guiding catheter, the balloon and the guidewire were removed. The sheath was removed. Hemostasis was obtained with deployment of TR band. There was no immediate complication. Patient is returned to his room in stable condition. Of note, the patient received 8000 units of intravenous heparin as well as intra-arterial verapamil. He had chest discomfort and EKG changes with the inflation that resolved at the end of the procedure. RESULTS: Successful stenting of the distal right coronary artery with reduction of stenosis from 99% to 0%. RECOMMENDATION: Patient will be continued on aspirin, Plavix, beta blockers, Phillip inhibitors, statin. The importance of dual antiplatelet treatment were discussed with the patient and his family who are in full understanding and agreement. Duration of sedation is 49 minutes. MMODL / IJN: [id number] /
--- NOTE | 2021-07-20 14:38 | CC ---
CARDIAC CATHETERIZATION REPORT Mr. Dover is a 56-year-old male known history of coronary artery disease status post coronary artery bypass grafting who presented with new onset exertional angina pectoris. In view of that, recommendation was made regarding cardiac catheterization. The procedure as well as the risks and the complications were discussed with the patient who is in full understanding and agreement. PROCEDURE: Patient was brought to the color laboratory technician in a fasting state after receiving fentanyl and Benadryl and achieving moderate conscious sedated state. Using Xylocaine anesthesia and Seldinger technique, a 6-Thai sheath was introduced in the left radial artery. Selective right and left coronary angiography performed using 5-Thai 4 bend right and left Lauren catheters. Multiple views of the coronary arteries including hemiaxial views obtained. Following that, the 5-Thai right Lauren was used to cross the aortic valve and used to cannulate the MEDINA to the LAD. Images of the grafts were obtained. Following that, a 6-Thai LCB catheter was introduced and images of the saphenous vein graft to the obtuse marginal branch were done. Following that, catheters were removed and a 6-Thai FR4 guiding catheter was introduced into the system that was used to cannulate the saphenous vein graft to the radial. FINDING: LEFT MAIN: This is a short size vessel, bifurcating into left circumflex, left anterior descending artery, left main coronary artery has no evidence of high-grade stenosis. LEFT ANTERIOR DESCENDING CORONARY ARTERY: This vessel is totally occluded proximally with no significant antegrade flow after the takeoff of the first diagonal branch. LEFT CIRCUMFLEX: This is a nondominant vessel giving rise to a large obtuse marginal branch. There is competitive flow in the obtuse marginal branch to the graft. There is a 20% to 30% plaque in the obtuse marginal branch. The rest of the vessel has no high-grade stenosis. RIGHT CORONARY ARTERY: This is a large-sized vessel bifurcating distally into PDA and posterolateral segment and branches. The right coronary artery distally prior to the bifurcation has a 99% stenosis in the stented segment. The rest of the vessel has no high-grade stenosis. MEDINA to LAD: The distal anastomotic site is patent. The flow into the LAD is brisk. There is no evidence of high-grade stenosis. SAPHENOUS VEIN GRAFT TO THE OBTUSE MARGINAL BRANCH: The proximal and distal anastomotic sites are patent. There is no significant obstructive disease in the graft with brisk flow into the [place] vessel. SAPHENOUS VEIN GRAFT TO THE RIGHT CORONARY ARTERY: This vessel is atretic. There is no significant antegrade flow. LEFT VENTRICULOGRAM: Left ventriculogram was not performed. HEMODYNAMICS: There was no gradient across the aortic valve. The left ventricular end-diastolic pressure was 10-12 mmHg. CONCLUSION: 1. Critical stenosis in the distal right coronary artery. 2. Chronically occluded left anterior descending coronary artery. 3. Mild disease in left circumflex. 4. Patent MEDINA to LAD. 5. Patent saphenous vein graft to the obtuse marginal branch. 6. Occluded saphenous vein graft to the right coronary artery. RECOMMENDATIONS: In view of findings and anatomy, I recommend proceeding with angioplasty and stenting of the right coronary artery. The procedure as well as the risks and the complications were discussed with the patient who is in full understanding and agreement. TOMAS / DAVINA: [id number] /
--- NOTE | 2021-07-20 20:17 | PN ---
PROGRESS NOTE DATE OF SERVICE: 07/20/2021 This 56-year-old gentleman admitted with unstable angina had cardiac catheterization as well as successful stenting of the distal RCA with reduction of stenosis from 99% to 0%. No chest pain. No palpitations. No fever. PHYSICAL EXAMINATION: Alert and oriented x3. Pulse is 55, blood pressure 120/76, respiration 20, temperature normal, pulse ox 98% on room air. HEENT: Conjunctivae normal. NECK: No jugular venous distention. CARDIOVASCULAR: S1, S2 muffled. RESPIRATION: Breath sounds diminished at the bases. A few scattered rhonchi. ABDOMEN: Soft, nontender. NERVOUS SYSTEM: No focal deficit. LABS: CBC within normal limits. Sodium 136. ASSESSMENT: 1. Chest pain, possible unstable angina, status post cardiac catheterization and stenting of the RCA. 2. Elevated white count, possibly reactive. 3. Reduced LV function with possible ischemic cardiomyopathy. 4. History of trace mitral regurgitation. 5. History of coronary artery disease, coronary artery bypass grafting, stent. 6. History of palpitations. 7. History of psoriasis. 8. History of inhalation. 9. History of hernia repair. 10.History of tendon surgery. RECOMMENDATIONS AND DISCUSSION: I recommend to continue current medications, continue with monitoring, symptomatic treatment. Will continue to monitor. Guarded prognosis. Further recommendations to follow. Follow closely with Cardiology. MMODL / IJN: [id number] /
[2021-07-21] MEDS: SODIUM CHLORIDE 0.9% 1,000 ML in EMPTY BAG 1 BAG IV SCH (05:02)
[2021-07-21 06:10] LABS: African American GFR (CKD) >90 (>60 ml/min/1.73 sqM); Anion Gap 4 mmol/L; Blood Urea Nitrogen 14 mg/dL (9-20); Calcium 9.1 mg/dL (8.4-10.2); Carbon Dioxide 27 mmol/L (22-30); Chloride 105 mmol/L (98-107); Glucose 97 mg/dL (74-99); Non-African American GFR(CKD) >90 (>60 ml/min/1.73 sqM); Potassium 4.5 mmol/L (3.5-5.1); Sodium 136 mmol/L (137-145)
[2021-07-21] MEDS: EZETIMIBE 10 MG TAB PO SCH (08:34)
[2021-07-21] MEDS: DOXYCYCLINE 100 MG CAP PO SCH (08:34)
[2021-07-21] MEDS: carvediloL 3.125 MG TAB PO SCH (08:36)
[2021-07-21] MEDS: CLOPIDOGREL 75 MG TAB PO SCH (08:36)
[2021-07-21] MEDS: amLODIPine 5 MG TAB PO SCH (08:36)
[2021-07-21] MEDS ORDERED: ASPIRIN 81 MG PO SCH (09:00)
[2021-07-21] MEDS ORDERED: ATORVASTATIN 80 MG TAB PO SCH (09:00)
[2021-07-21 09:56] VITALS: BP 152/78; RESP 14; TEMP 98
[2021-07-21 10:05] VITALS: PULSE 58
[2021-07-21] MEDS: CHOLECALCIFEROL 25 MCG (1000 IU) TABLET PO SCH (10:07)
--- NOTE | 2021-07-21 10:31 | P.PN ---
Subjective Patient is a pleasant 56-year-old male with a past medical history of coronary artery disease status post PCI RCA in 12/2018, CABG x 4 (MEDINA-LAD, LAYNE-OM3, VG- PDA, VG-D1) in 2016, hypertension, dyslipidemia. He follows in the office with Patient initially presented to the hospital with chest pain and suspected angina. Patient reports that approximately one and a half to 2 weeks ago he started noticing tightness in his chest with exertion, moving up into his neck if he continued to exert himself. If he sat down and rested for 15 or 20 minutes, he noted the chest tightness would improve. Patient reports during these episodes that he would no flushing, palpitations, and some dizziness. Echocardiogram demonstrated patient's EF of 45-50%, paradoxical/dyskinetic septal motion consistent with right ventricular volume overload, RV is mildly enlarged, trace mitral regurgitation, mild tricuspid regurgitation, moderate: Hypertension RVSP of 49 mmHg. Cardiac catheterization was recommended. 07/19: Patient underwent cardiac catheterization with Dr. Golden which revealed critical stenosis in the distal RCA, chronically occluded LAD, mild disease in the left circumflex, patent MEDINA to LAD, patent SVG to obtuse marginal branch, occluded SVG to RCA. Patient underwent successful stenting of the distal RCA 07/20/21: Patient seen and examined at bedside, no acute distress. Denies any chest pain, shortness of breath, lightheadedness, dizziness, palpitations. Laboratory data reviewed sodium 136, potassium 4.5, BUN 14, serum creatinine 0.7. Patient is currently maintained on amlodipine 5 mg daily, aspirin 81 mg daily, atorvastatin 80 mg daily, carvedilol 3.125 mg twice a day, Plavix 75 mg daily,Zetia 10 mg daily Blood pressure 152/78, heart rate 80, afebrile, maintaining oxygen saturations on room air GENERAL: Well-appearing, well-nourished and in no acute distress. NECK: Supple without JVD or thyromegaly. LUNGS: Breath sounds clear to auscultation bilaterally. Respiration equal and unlabored. No wheezes, rales or rhonchi. HEART: Regular rate and rhythm without murmurs, rubs or gallops. S1 and S2 heard. EXTREMITIES: Normal range of motion, no edema. No clubbing or cyanosis. Peripheral pulses intact and strong. SKIN: Left radial Cath site, clean, dry, no hematoma. 2+ pulses ASSESSMENT: NSTEMI status post PCI to the RCA on 07/20/2021 History of coronary artery disease s/p CABG x 4 in 2016 and stent to RCA in Dec History of hypertension History of dyslipidemia PLAN: From cardiology perspective patient stable to be discharged home. Follow-up with Dr. Golden in one week Patient to be discharged on dual antiplatelet therapy with aspirin and Plavix Continue atorvastatin 80 mg daily, carvedilol 3.125 mg BID, amlodipine 5mg aily, and Zetia 10mg daily. Objective - Vital Signs Vital signs: Vital Signs Temp 98.4 F 07/20/21 07:00 Pulse 53 L 07/20/21 13:50 Resp 16 07/20/21 13:50 BP 116/79 07/20/21 13:50 Pulse Ox 97 07/20/21 13:20 Intake & Output 07/19/21 07/20/21 07/20/21 18:59 06:59 18:59 Intake Total 600 200 Output Total 1 1 Balance 599 -1 200 Intake: IV 200 Oral 600 0 Output: Stool 1 1 Other: Voiding Method Toilet Toilet # Voids 3 1 - Labs CBC & Chem 7: 07/20/21 08:56 07/21/21 05:40 Labs: Abnormal Lab Results - Last 24 Hours (Table) 07/20/21 Range/Units 08:56 Sodium 136 L (137-145) mmol/L
[2021-07-21 11:03] VITALS: BMI 43.8
--- NOTE | 2021-07-21 12:45 | CDI ---
Documentation Clarification Form Date: 07/21/2021 12:22:18 PM From: Candy Hannon RN CCDS Admit Date: 07/20/2021 03:39:00 PM Patient Name: Lázaro Dover Visit Number: [id number] Discharge Date: ATTENTION: The Clinical Documentation Specialists (CDI) and [facility] Coding Staff appreciate your assistance in clarifying documentation. Please respond to the clarification below the line at the bottom and electronically sign. The CDI & [facility] Coding staff will review the response and follow-up if needed. Please note: Queries are made part of the Legal Health Record. If you have any questions, please contact the author of this message via ITS. Dr. Karl Borrero Conflicting documentation has been found in the medical record. As attending physician, please provide clarification. Myocardial infarction ruled out, medicine progress note, 07/19. NSTEMI status post PCI to the RCA on 07/20, cardiology progress note 07/21. History/Risk Factors: 56-year-old male presents to the ED with chest pain for the past few days in the central and left part of the chest which was radiating up the neck. Medical History: CAD, chest pain, palpitations and CABG. H&P, 07/17. Clinical Indicators: VSS: 07/17 B/P 126/75, HR 58, Temp 98.7, RR 18, SpO2 96% ra LABS: 07/17 Troponin <0.012, <0.012, <0.012, 07/18 <0.012 Echocardiogram: 07/18 Cardiology consult Left ventricular size is normal, left ventricular wall thickness is normal, overall left ventricular systolic function is mildly impaired with an ejection fraction between 45 and 50%, there is paradoxical /dyssynergy septal motion consistent with right ventricular volume overload and/or elevated right ventricular and diastolic pressure, right ventricle is moderately enlarged, there is trace mitral regurgitation, mild tricuspid regurgitation is present there is moderate pulmonary hypertension, right ventricular systolic pressure is measured by the Doppler is 49.74 mmHg and no pericardial effusion. Heart Catheterization: 07/20 Critical stenosis in the distal right coronary artery. Chronically occluded left anterior descending coronary artery. Mild disease in left circumflex. Treatment: 07/17 07/19 Heparin Sodium 25,000 units 250mls @ 10mls/hr IV Q24H, 07/18 Echocardiogram, 07/20 Heart Catheterization, 07/20 PTCA with one stent. Please clarify which diagnosis is most appropriate: [ ] NSTEMI POA [ ] NSTEMI ruled out [ ] Other (please specify) [ ] Unable to determine (Template Last Revised: December 2020) NSTEMI ruled ou MTDD
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
== END 2021-07-21 12:36 | disposition home or self-care (01) | DRG 247 ==
LOC: EC 13:02 → 6NMEDSUR 19:31 → OBSVTOIN 07-20 15:39
PROVIDERS: ADMIT Hospitalist; ATTEND Hospitalist
PROC: 027034Z Dilation of Coronary Artery, One Artery with Drug-eluting Intraluminal Device, Percutaneous Approach (ICD-10-PCS; principal; 2021-07-20 15:30)
PROC: 4A023N7 Measurement of Cardiac Sampling and Pressure, Left Heart, Percutaneous Approach (ICD-10-PCS; principal; 2021-07-20 15:30)
PROC: B2111ZZ Fluoroscopy of Multiple Coronary Arteries using Low Osmolar Contrast (ICD-10-PCS; principal; 2021-07-20 15:30)
PROC: B2131ZZ Fluoroscopy of Multiple Coronary Artery Bypass Grafts using Low Osmolar Contrast (ICD-10-PCS; principal; 2021-07-20 15:30)
DX: I25.110 Atherosclerotic heart disease of native coronary artery with unstable angina pectoris (principal); Z68.41 Body mass index [BMI] 40.0-44.9, adult; I27.20 Pulmonary hypertension, unspecified; I11.9 Hypertensive heart disease without heart failure; I25.710 Atherosclerosis of autologous vein coronary artery bypass graft(s) with unstable angina pectoris; E66.9 Obesity, unspecified; Z20.822 Contact with and (suspected) exposure to COVID-19; I25.82 Chronic total occlusion of coronary artery; I25.5 Ischemic cardiomyopathy; E78.5 Hyperlipidemia, unspecified; E78.00 Pure hypercholesterolemia, unspecified; R00.1 Bradycardia, unspecified; I45.9 Conduction disorder, unspecified; T59.811D Toxic effect of smoke, accidental (unintentional), subsequent encounter; L40.9 Psoriasis, unspecified; D72.829 Elevated white blood cell count, unspecified; Z79.82 Long term (current) use of aspirin; Z79.02 Long term (current) use of antithrombotics/antiplatelets; Z79.899 Other long term (current) drug therapy; Z87.891 Personal history of nicotine dependence; Z95.1 Presence of aortocoronary bypass graft; Z95.5 Presence of coronary angioplasty implant and graft; Z87.19 Personal history of other diseases of the digestive system; Z86.69 Personal history of other diseases of the nervous system and sense organs; Z87.39 Personal history of other diseases of the musculoskeletal system and connective tissue; Z98.890 Other specified postprocedural states; Z71.3 Dietary counseling and surveillance; Z88.8 Allergy status to other drugs, medicaments and biological substances; Z81.8 Family history of other mental and behavioral disorders
CPT/HCPCS: 36415; 71046; 80048; 80053; 83735; 84484; 85025; 85027; 85379; 85610; 85730; 87635; 93005; 93306; 93459; 99285

== ENCOUNTER 2023-12-14 10:19 | Emergency (ER) | payer OTHER ==
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
[2023-12-14 11:02] VITALS: BP 165/88; PULSE 61; RESP 18; TEMP 97.8
--- NOTE | 2023-12-14 11:24 | XR ---
EXAMINATION TYPE: XR chest 2V DATE OF EXAM: 12/14/2023 COMPARISON: 02/17/2022 HISTORY: Shortness of breath TECHNIQUE: Frontal and lateral views of the chest are obtained. FINDINGS: Scattered senescent parenchymal changes noted. Hyperinflation compatible with COPD. No evidence for infiltrate. No evidence for atelectasis. Heart size is stable. Mediastinal structures are stable and grossly unremarkable. No evidence for hilar prominence. Degenerative changes dorsal spine. IMPRESSION: 1. No evidence for acute pulmonary disease.
== END 2023-12-14 13:10 | disposition home or self-care (01) ==
LOC: EC 10:19
DX: J10.1 Influenza due to other identified influenza virus with other respiratory manifestations (principal); I25.10 Atherosclerotic heart disease of native coronary artery without angina pectoris; Z79.82 Long term (current) use of aspirin; Z20.822 Contact with and (suspected) exposure to COVID-19
CPT/HCPCS: 71046; 87636; 99285

== ENCOUNTER → 2025-01-01 | Outpatient (CLI) | payer BC ==
[2025-01-01 18:17] LABS: ALT 34 U/L (10-49); AST 28 U/L (14-35); Albumin 4.5 g/dL (3.8-4.9); Albumin/Globulin Ratio 1.96 Ratio (1.60-3.17); Alkaline Phosphatase 84 U/L (41-126); BUN/Creat Ratio 14.67 Ratio (12.00-20.00); Blood Urea Nitrogen 13.2 mg/dL (9.0-27.0); Calcium 9.4 mg/dL (8.7-10.3); Carbon Dioxide 27.2 mmol/L (21.6-31.8); Chloride 105 mmol/L (96-109); Chol/HDL Ratio 2.52 Ratio; Globulin 2.3 g/dL (1.6-3.3); Glucose 98 mg/dL (70-110); LDL Cholesterol,Calculated 62.2 mg/dL (0.0-131.0); Potassium 4.8 mmol/L (3.5-5.5); Sodium 141 mmol/L (135-145); Total Bilirubin 0.4 mg/dL (0.3-1.2); Total Protein 6.8 g/dL (6.2-8.2); VLDL Calculation 15.64 mg/dL (5.00-40.00)
== END | disposition home or self-care (01) ==
LOC: LABWHC1 10:27
PROVIDERS: ATTEND Internal Medicine Interventional Cardiology
DX: I10 Essential (primary) hypertension (principal); E78.2 Mixed hyperlipidemia
CPT/HCPCS: 36415; 80053; 80061

== ENCOUNTER 2025-01-29 14:59 | Observation (INO) | payer BC ==
[2025-01-29 15:47] LABS: Basophils # (A) 0.02 10*3/uL (0.00-0.10); Basophils % (A) 0.2 %; Eosinophils # (A) 0.14 10*3/uL (0.04-0.35); Eosinophils % (A) 1.7 %; HCT 43.3 % (39.6-50.0); HGB 15.4 g/dL (13.0-17.0); Lymphocytes # (A) 1.61 10*3/uL (0.90-5.00); Lymphocytes % (A) 19.1 %; MCH 31.2 pg (27.0-32.0); MCHC 35.6 g/dL (32.0-37.0); MCV 87.8 fL (80.0-97.0); Mean Platelet Volume 9.3 fL (9.5-12.2); Monocytes # (A) 0.78 10*3/uL (0.20-1.00); Monocytes % (A) 9.2 %; Neutrophils # (A) 5.87 10*3/uL (1.80-7.70); Neutrophils % (A) 69.6 %; Platelet Count 225 10*3/uL (140-440); RBC 4.93 10*6/uL (4.40-5.60); RDW 12.4 % (11.5-14.5); WBC 8.44 10*3/uL (4.50-10.00)
--- NOTE | 2025-01-29 15:53 | ED ---
Chest Pain HPI - General Chief Complaint: Chest Pain Stated Complaint: Chest Pain Time Seen by Provider: 01/29/25 15:17 Source: patient, RN notes reviewed, old records reviewed Mode of arrival: ambulatory Limitations: no limitations - History of Present Illness Initial Comments: This is a 60-year-old male with a long cardiac history. Patient had CABG in 2016, since then has had 4 stents and coming in with 4 to 5 days of left-sided aching pain on and off noticed mostly when he is sleeping no change with activity. Patient does not take daily aspirin but is started taking a daily aspirin. No recent illness no fever cough or congestion no shortness of breath no diaphoresis, pain does not feel like prior [place] MD Complaint: chest pain -: days(s) (5) Onset: during rest, awoke with symptoms Pain Location: substernal, left chest Pain Radiation: none Severity: moderate Quality: tightness, aching Consistency: intermittent Improves With: nothing Worsens With: nothing Anginal Symptoms: other Other Symptoms: palpitations Treatments Prior to Arrival: none - Related Data Home Medications Medication Instructions Recorded Confirmed Cholecalciferol [Vitamin D3 (25 1,000 unit PO DAILY 08/18/16 07/17/21 Mcg = 1000 Iu)] Aspirin EC [Ecotrin Low Dose] 81 mg PO DAILY 10/30/16 07/17/21 Doxycycline Hyclate 100 mg PO BID 07/17/21 07/17/21 Ezetimibe [Zetia] 10 mg PO DAILY 07/17/21 07/17/21 Nitroglycerin Sl Tabs [Nitrostat] 0.4 mg SL Q5M PRN 07/17/21 07/17/21 Sildenafil [Revatio] 20 mg PO DAILY PRN 07/17/21 07/17/21 amLODIPine [Norvasc] 5 mg PO DAILY 07/17/21 07/17/21 carvediloL [Coreg] 3.125 mg PO BID 07/17/21 07/17/21 Previous Rx's Medication Instructions Recorded Clopidogrel [Plavix] 75 mg PO DAILY #90 tab 12/23/18 Atorvastatin [Lipitor] 80 mg PO DAILY 30 Days #60 tab 07/21/21 carvediloL [Coreg] 3.125 mg PO BID-W/MEALS 30 Days 07/21/21 #60 tab Allergies Allergy/AdvReac Type Severity Reaction Status Date / Time No Known Allergies Allergy Verified 01/29/25 16:48 Review of Systems ROS Statement: Those systems with pertinent positive or pertinent negative responses have been documented in the HPI. ROS Other: All systems not noted in ROS Statement are negative. 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 3 stents paced middle of december 2018 Past Anesthesia/Blood Transfusion Reactions: No Reported Reaction Date of Last Stent Placement:: 12/22/18 Past Psychological History: No Psychological Hx Reported Smoking Status: Never smoker Past Alcohol Use History: Occasional Past Drug Use History: None Reported - Past Family History Father Additional Family Medical History / Comment(s): FROM [place]ICIDE Mother Family Medical History: No Reported History Additional Family Medical History / Comment(s): MOM IS 90 AND HEALTHY General Exam Limitations: no limitations General appearance: alert, in no apparent distress Head exam: Present: atraumatic, normocephalic, normal inspection Eye exam: Present: normal appearance, PERRL, EOMI. Absent: scleral icterus, conjunctival injection, periorbital swelling ENT exam: Present: normal exam, mucous membranes moist Neck exam: Present: normal inspection. Absent: tenderness, meningismus, lymphadenopathy Respiratory exam: Present: normal lung sounds bilaterally. Absent: respiratory distress, wheezes, rales, rhonchi, stridor Cardiovascular Exam: Present: regular rate, normal rhythm, normal heart sounds. Absent: systolic murmur, diastolic murmur, rubs, gallop, clicks GI/Abdominal exam: Present: soft, normal bowel sounds. Absent: distended, tenderness, guarding, rebound, rigid Extremities exam: Present: normal inspection, full ROM, normal capillary refill. Absent: tenderness, pedal edema, joint swelling, calf tenderness Back exam: Present: normal inspection Neurological exam: Present: alert, oriented X3, CN II-XII intact Psychiatric exam: Present: normal affect, normal mood Skin exam: Present: warm, dry, intact, normal color. Absent: rash Course Vital Signs 01/29/25 15:08 Temperature 98.4 F Pulse Rate 56 L Respiratory 18 Rate Blood Pressure 148/78 O2 Sat by Pulse 97 Oximetry - Reevaluation(s) Reevaluation #1: 01/29/25 16:06 Medical records reviewed Prior heart history includes CABG 2016 Multiple revisions for chest pain resulting in stent placement Reevaluation #2: 01/29/25 16:53 Patient still with chest pain here in the ER Reevaluation #3: 01/29/25 16:53 Patient informed of results, questions answered, patient prefers to see woodworking machinist here in the hospital Reevaluation #4: Was pt. sent in by a medical professional or institution (, PA, DRESSMAKER OR TAILOR, urgent care, hospital, or prison...) When possible be specific @ -no Did you speak to anyone other than the patient for history (EMS, parent, family, police, friend...)? What history was obtained from this source @ -no Did you review nursing and triage notes (agree or disagree)? Why? @ -agree Are old charts reviewed (outside hosp., previous admission, EMS record, old EKG, old radiological studies, urgent care reports/EKG's, prison records)? Report findings @ -yes Differential Diagnosis (chest pain, altered mental status, abdominal pain women, abdominal pain men, vaginal bleeding, weakness, fever, dyspnea, syncope, headache, dizziness, GI bleed, back pain, seizure, CVA, palpatations, mental health, musculoskeletal)? @ -prior EKG interpreted by me (3pts min.). @ -yes X-rays interpreted by me (1pt min.). @ -yes negative for acute disease CT interpreted by me (1pt min.). @ -no U/S interpreted by me (1pt. min.). @ -no What testing was considered but not performed or refused? (CT, X-rays, U/S, labs)? Why? @ -none What meds were considered but not given or refused? Why? @ -none Did you discuss the management of the patient with other professionals (professionals i.e. , PA, DRESSMAKER OR TAILOR, lab, RT, psych nurse, director of social work, duct installer, teacher, corporate ethics officer, welfare case worker)? Give summary @ -no Was smoking cessation discussed for >3mins.? @ -no Was critical care preformed (if so, how long)? @ -no Were there social determinants of health that impacted care today? How? (Homelessness, low income, unemployed, alcoholism, drug addiction, tr ansportation, low edu. Level, literacy, decrease access to med. care, group home, rehab)? @ -none Was there de-escalation of care discussed even if they declined (Discuss DNR or withdrawal of care, Hospice)? DNR status @ -no What co-morbidities impacted this encounter? (DM, HTN, Smoking, COPD, CAD, Cancer, CVA, ARF, Chemo, Hep., AIDS, mental health diagnosis, sleep apnea, morbid obesity)? @ -none Was patient admitted / discharged? Hospital course, mention meds given and route, prescriptions, significant lab abnormalities, going to OR and other pertinent info. @ - Undiagnosed new problem with uncertain prognosis? @ -no Drug Therapy requiring intensive monitoring for toxicity (Heparin, Nitro, Insulin, Cardizem)? @ -no Were any procedures done? @ -no Diagnosis/symptom? @ - Acute, or Chronic, or Acute on Chronic? @ -Acute Uncomplicated (without systemic symptoms) or Complicated (systemic symptoms)? @ -Complicated Side effects of treatment? @ -no Exacerbation, Progression, or Severe Exacerbation? @ -exacerbation Poses a threat to life or bodily function? How? (Chest pain, [place], [place], pneumonia, PE, COPD, DKA, ARF, appy, cholecystitis, CVA, Diverticulitis, Homicidal, Suicidal, threat to staff... and all critical care pts) @ -yes Reevaluation #5: Differential Chest Pain: Stable Angina, Unstable Angina, STEMI, NSTEMI Aortic Dissection, Pneumothorax, Musculoskeletal, Esophageal Spasm GERD, Cholecystitis, Pancreatitis, Zoster, this is not meant to be an all-inclusive list. - Consultations Consultation #1: Spoke with sound agrees to admit this patient Chest Pain MDM - MDM 60 male with strong history of coronary artery disease coming in with chest pain today. Patient will admit for unstable angina and to rule out acute ACS Critical Care Time Critical Care Time: Yes Total Critical Care Time: 31 Disposition Clinical Impression: Unstable angina pectoris, History of heart bypass surgery, S/P CABG (coronary artery bypass graft) Disposition: ADMITTED IP TO THIS HOSP Condition: Fair Is patient prescribed a controlled substance at d/c from ED?: No Referrals: None,Stated [Primary Care Provider] - 1-2 days Time of Disposition: 17:00
[2025-01-29 16:01] LABS: ALT 36 U/L (4-49); AST 32 U/L (17-59); African American GFR (CKD) >90 (>60 ml/min/1.73 sqM); Albumin 4.4 g/dL (3.5-5.0); Alkaline Phosphatase 75 U/L (38-126); Anion Gap 8 mmol/L; Blood Urea Nitrogen 12 mg/dL (9-20); Calcium 9.5 mg/dL (8.4-10.2); Carbon Dioxide 26 mmol/L (22-30); Chloride 105 mmol/L (98-107); Glucose 94 mg/dL (74-99); Lipase 76 U/L (23-300); Magnesium 1.9 mg/dL (1.6-2.3); Non-African American GFR(CKD) >90 (>60 ml/min/1.73 sqM); Potassium 4.3 mmol/L (3.5-5.1); Sodium 139 mmol/L (137-145); Total Bilirubin 0.7 mg/dL (0.2-1.3); Total Protein 6.9 g/dL (6.3-8.2)
[2025-01-29 16:05] LABS: Prothrombin Time 10.9 sec (10.0-12.5)
[2025-01-29 16:09] LABS: NT-Pro-B-Type Natriuretic Pept 208 pg/mL
--- NOTE | 2025-01-29 16:18 | XR ---
EXAMINATION TYPE: XR chest 2V DATE OF EXAM: 01/29/2025 4:02 PM COMPARISON: Chest radiographs from 12/14/2023. CLINICAL INDICATION: Male, 60 years old with history of Chest Pain; [facility] TECHNIQUE: XR chest 2V Frontal and lateral views of the chest. FINDINGS: Lungs/Pleura: There is no evidence of pleural effusion, focal consolidation, or pneumothorax. Pulmonary vascularity: Unremarkable. Heart/mediastinum: Cardiomediastinal silhouette is unremarkable. Musculoskeletal: No acute osseous pathology. Midline sternotomy wires are noted. IMPRESSION: No acute cardiopulmonary disease/process. [facility], , 01/29/2025 4:16 PM
[2025-01-29] MEDS ORDERED: HEPARIN SODIUM 1,000 UN/ML (10ML VL) IV PRN (16:50)
[2025-01-29] MEDS ORDERED: MORPHINE SULFATE 4 MG/ML SYRINGE IV PRN (16:50)
[2025-01-29] MEDS ORDERED: ONDANSETRON 4 MG/2 ML VIAL IVP PRN (16:50)
[2025-01-29] MEDS ORDERED: NALOXONE 0.4 MG/ML 1 ML VIAL IV PRN (16:50)
[2025-01-29] MEDS: LORazepam 2 MG/ML INJ IV STA (17:35)
[2025-01-29] MEDS: HEPARIN SODIUM 1,000 UN/ML (10ML VL) IV ONE (17:37)
[2025-01-29] MEDS: HEPARIN SOD,PORK IN 0.45% NACL 25,000 UNIT in 0.45% NACL 1 250ML.BAG IV SCH (17:37)
[2025-01-29] MEDS: SODIUM CHLORIDE 0.9% 1,000 ML IV SCH (17:39)
[2025-01-29] MEDS ORDERED: NON FORMULARY DRUG (Albuterol Sulfate/Budesonide [Airsupra 90-80 Mcg Inhaler] 10.7 GM Hfa. INHALATION PRN (17:40)
--- NOTE | 2025-01-29 18:32 | P.HPIM ---
History of Present Illness H&P Date: 01/29/25 Chief Complaint: Chest pain History of Presenting Illness: Patient is a very pleasant 60-year-old male with a past medical history of CAD status post CABGx4 followed by stenting, hypertension, and hyperlipidemia. Patient reports he follows with dirt bike racer Dr. Golden. He states last stent was placed approximately 5 years ago. He presented to the emergency department with a chief complaint of chest pain. Patient reports experiencing intermittent chest pain over the past 5 to 6 days initially felt to midsternal chest radiating into left anterior chest and into left shoulder. Patient denies anything making pain better or worse states that he notices the pain more at rest and admits it is similar to pain felt just prior to previous stent isatu cement. Patient denies having any headache, lightheadedness, dizziness, palpitations, shortness of breath, cough or congestion, or experiencing any numbness/tingling/weakness/swelling in his extremities. He does admit to some left arm tingling when his chest pain radiates into his shoulder and down his arm but denies having any numbness or weakness. He currently reports pain has resolved but again reports it is only been intermittent. Patient reports he last saw his dirt bike racer approximately 1 month ago and is scheduled for an echocardiogram and stress test next month. Upon arrival to our facility, patient underwent evaluation in the emergency department. Vital signs upon arrival show blood pressure 148/78, heart rate 56, respiratory rate 18, temp 98.4 F, and SpO2 of 97% on room air. EKG was completed showing sinus bradycardia at 54 bpm with no significant T wave or ST abnormality showing no signs of acute ischemia upon personal review and interpretation. Chest x-ray completed negative for acute cardiopulmonary process. Labs completed and reviewed. CBC unremarkable. Coagulation profile normal findings. BMP unremarkable with blood glucose of 94. Magnesium 1.9. Calcium 9.5. Liver profile normal findings. Troponin was less than 0.012 and proBNP was 208. Lipase also normal findings at 76. Patient was started on heparin infusion in the emergency department for treatment of unstable angina. He was then admitted under our services with consultation to cardiology. Review of systems: Pertinent positives and negatives as discussed in HPI, a complete review of sy stems was performed and all other systems are negative. Physical exam: Vital signs reviewed and stable. General: Nontoxic, no distress and appears stated age. Derm: Skin warm and dry, normal coloration for ethnicity. Head: Atraumatic, normocephalic and symmetric. Eyes: EOM's intact, no lid lag, and anicteric sclera Mouth: no lip lesions, mucus membranes moist Cardiovascular: Distant heart sounds, regular rate and rhythm with normal S1S2, no murmur, positive posterior tibial pulses bilaterally, and cap refill < 2 seconds. Lungs: Respirations even, regular, and unlabored on room air. Lungs CTA bilaterally, no rhonchi, no rales, no wheezing, and no accessory muscle usage. Abdominal: soft, nontender to palpation, no guarding, no appreciable organomegaly Ext: ROM intact. No gross muscle atrophy, no edema, no contractures Neuro: Speech clear, face symmetrical and CN II-XII grossly intact with no noted focal neuro deficits Psych: Alert and oriented to person, place, time, and situation. Appropriate and pleasant affect. Assessment and Plan of Care: Chest pain, rule out acute coronary event History of CAD status post CABG x 4 followed by stenting Hypertension Hyperlipidemia -Cardiology consulted, appreciate recommendations -Continue heparin infusion with close monitoring of PTT for goal therapeutic range of 45 to 79 seconds. -Telemetry monitoring -Trend troponins -Cardiac diet, NPO at midnight - Continue cardiac medication regimen with aspirin 81 mg daily, amlodipine 5 mg daily, atorvastatin 80 mg daily, carvedilol 3.125 mg twice daily with meals, and Zetia 10 mg daily. -Lipid profile with a.m. labs. -Echocardiogram to be completed The patient is admitted with an anticipated less than 2 midnight stay for evaluation of chest pain CODE STATUS: Full code DVT prophylaxis: Low intensity heparin infusion Discussed with: Patient, patient's , and ED physician Anticipated discharge date: Pending clinical course, likely 24 to 48-hour Anticipated discharge place: Home Patient was seen independently by Nurse Practitioner. This document was prepared using Smart Cube dictation software. Please allow for errors in building stonecutter while rare they do occur. Flaco Lyle NP rendered care for this patient independently, reviewed the findings and plan as documented in the note above and agree with plan. I did not physically speak with or examine the patient on this date. 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 3 stents paced middle of december 2018 Past Anesthesia/Blood Transfusion Reactions: No Reported Reaction Date of Last Stent Placement:: 12/22/18 Past Psychological History: No Psychological Hx Reported Smoking Status: Never smoker Past Alcohol Use History: Occasional Past Drug Use History: None Reported - Past Family History Father Additional Family Medical History / Comment(s): FROM SUICIDE Mother Family Medical History: No Reported History Additional Family Medical History / Comment(s): MOM IS 90 AND HEALTHY Medications and Allergies Home Medications Medication Instructions Recorded Confirmed Type Aspirin EC [Ecotrin Low Dose] 81 mg PO DAILY 10/30/16 01/29/25 History Ezetimibe [Zetia] 10 mg PO DAILY 07/17/21 01/29/25 History amLODIPine [Norvasc] 5 mg PO DAILY 07/17/21 01/29/25 History Albuterol Sulfate/Budesonide 2 puff INHALATION RT-Q4H PRN 01/29/25 01/29/25 History [Airsupra 90-80 Mcg Inhaler] Atorvastatin [Lipitor] 80 mg PO DAILY 01/29/25 01/29/25 History Cholecalciferol [Vitamin D3 (125 125 mcg PO DAILY 01/29/25 01/29/25 History Mcg = 5000 Iu)] Ibuprofen [Motrin] 800 mg PO DAILY PRN 01/29/25 01/29/25 History Sildenafil Citrate 100 mg PO DAILY PRN 01/29/25 01/29/25 History Terbinafine [LamISIL] 250 mg PO DAILY 01/29/25 01/29/25 History carvediloL [Coreg] 3.125 mg PO BID 01/29/25 01/29/25 History Allergies Allergy/AdvReac Type Severity Reaction Status Date / Time No Known Allergies Allergy Verified 01/29/25 16:48 Physical Exam Vitals: Vital Signs Temp Pulse Resp BP Pulse Ox 01/29/25 15:08 98.4 F 56 L 18 148/78 97 Intake and Output 01/29/25 01/29/25 01/29/25 06:59 14:59 22:59 Other: Weight 117.934 kg Results CBC & Chem 7: 01/29/25 15:39 01/29/25 15:39 Labs: Abnormal Lab Results - Last 24 Hours (Table) 01/29/25 Range/Units 15:39 MPV 9.3 L (9.5-12.2) fL
[2025-01-29] MEDS: carvediloL 3.125 MG TAB PO SCH (21:29)
[2025-01-30 08:31] LABS: Basophils # (A) 0.03 X 10*3/uL (0.00-0.10); Basophils % (A) 0.4 %; Eosinophils # (A) 0.16 X 10*3/uL (0.04-0.35); Eosinophils % (A) 2.1 %; HCT 45.5 % (39.6-50.0); HGB 15.2 g/dL (13.0-17.0); Lymphocytes # (A) 1.88 X 10*3/uL (0.90-5.00); Lymphocytes % (A) 25.1 %; MCH 30.2 pg (27.0-32.0); MCHC 33.4 g/dL (32.0-37.0); MCV 90.3 FL (80.0-97.0); Mean Platelet Volume 9.8 FL (9.5-12.2); Monocytes # (A) 0.71 X 10*3/uL (0.20-1.00); Monocytes % (A) 9.5 %; NRBC Per 100 WBC 0 X 10*3/uL (0.00-0.01); Neutrophils # (A) 4.69 X 10*3/uL (1.80-7.70); Neutrophils % (A) 62.6 %; Platelet Count 213 X 10*3/uL (140-440); RBC 5.04 X 10*6/uL (4.40-5.60); RDW 12.5 % (11.5-14.5); WBC 7.49 X 10*3/uL (4.50-10.00)
[2025-01-30] MEDS ORDERED: CAFFEINE CITRATE 60 MG/3 ML VIAL IV PRN (08:53)
[2025-01-30] MEDS ORDERED: AMINOPHYLLINE 500 MG/20 ML VIAL IV PRN (08:53)
[2025-01-30] MEDS ORDERED: REGADENOSON 0.4 MG/5 ML SYRINGE IV PRN (08:53)
[2025-01-30 09:00] LABS: ALT 32 U/L (10-49); AST 28 U/L (14-35); Albumin 4.2 g/dL (3.8-4.9); Alkaline Phosphatase 78 U/L (41-126); BUN/Creat Ratio 12.44 Ratio (12.00-20.00); Blood Urea Nitrogen 11.2 mg/dL (9.0-27.0); Calcium 9.1 mg/dL (8.7-10.3); Carbon Dioxide 26.3 mmol/L (21.6-31.8); Chloride 106 mmol/L (96-109); Chol/HDL Ratio 2.34 Ratio; Glucose 92 mg/dL (70-110); LDL Cholesterol,Calculated 50.5 mg/dL (0.0-131.0); Potassium 4.4 mmol/L (3.5-5.5); Sodium 141 mmol/L (135-145); Total Bilirubin 0.4 mg/dL (0.3-1.2); Total Protein 6.2 g/dL (6.2-8.2); VLDL Calculation 19.44 mg/dL (5.00-40.00)
--- NOTE | 2025-01-30 10:42 | P.CRDCN ---
History of Present Illness History of present illness: HISTORY OF PRESENT ILLNESS: This is a 60-year-old male with a past medical history significant for coronary artery disease with previous CABG and stenting, hypertension, hyperlipidemia, a nd obesity. Patient follows in the office with Dr. Golden. We have been asked to see the patient in consultation for chest pain. Patient examined at the bedside. Patient [place]. He states that he has had some discomfort on the left side of his chest that has been steady since that time. He describes it as an aching sensation. He denies any shortness of breath. He states the pain is not worse with movement or position. He states the pain is not worse with exertion. He does report having some pounding in his chest. He does report this morning he had an episode of coughing and when he was done coughing he had a brief episode of chest pain that resolved on its own. The patient does have some mild lower extremity edema. Leon barrett states he has been eating a fair amount of salt lately as well. DIAGNOSTICS: - EKG reveals sinus mechanism with no signs of acute ischemia - Chest xray negative for acute process. - Laboratory data: WBC 7.49. Hemoglobin 15.2. Platelet count 213. Sodium 141. Potassium 4.4. BUN 11. Creatinine 0.90. Troponin negative x 3. proBNP 208. - Current home cardiac medications include Zetia 10 mg daily, Lipitor 80 mg daily, carvedilol 3.125 mg twice a day, amlodipine 5 mg daily, atorvastatin 80 mg daily. - Most recent echocardiogram obtained in July 2021 revealing ejection fraction 47%, mild TR - Cardiac catheterization history: 07/2021 with stenting to the distal RCA. - Patient underwent four-vessel CABG in August 2016 with MEDINA to LAD, LAYNE to OM 3, VG to PDA, VG to D1 REVIEW OF SYSTEMS: At the time of my exam: CONSTITUTIONAL: Denies fever or chills. HEENT: Denies blurred vision, vision changes, or eye pain. Denies hemoptysis CARDIOVASCULAR: Denies chest pain. Denies orthopnea. Denies PND. Denies palpitations RESPIRATORY: Denies shortness of breath. GASTROINTESTINAL: Denies abdominal pain. Denies nausea or vomiting. HEMATOLOGIC: Denies bleeding disorders. GENITOURINARY: Denies any blood in urine. SKIN: Denies pruitis. Denies rash. PHYSICAL EXAM: VITAL SIGNS: Reviewed. GENERAL: Well-developed in no acute distress. HEENT: Head is normocephalic. Pupils are equal, round. Sclerae anicteric. Mucous membranes of the mouth are moist. Neck supple. No JVD or thyromegaly LUNGS: Respirations even and unlabored. Lungs essentially clear to auscultation bilaterally. HEART: Regular rate and rhythm. S1 and S2 heard. ABDOMEN: Soft. Nondistended. Nontender. EXTREMITIES: Normal range of motion. No clubbing or cyanosis. Peripheral pulses intact. No lower extremity edema NEUROLOGIC: Awake and alert. Oriented x 3. ASSESSMENT: Chest pain Coronary artery disease with previous four-vessel CABG in 2016 and subsequent stenting Hypertension Hyperlipidemia Morbid obesity: BMI 40.7 PLAN: An acute coronary event has been ruled out Obtain 2D echo to assess cardiac structure and function Resume home cardiac medications Discontinue IV heparin Reinforced importance of low-sodium diet Patient to undergo Lexiscan stress test today If negative, he may be discharged home from a cardiac standpoint follow-up in the office with Dr. Golden Nurse practitioner note has been reviewed by physician. Signing provider agrees with the documented findings, assessment, and plan of care documented by SHINGLE CATCHER as a scribe. 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 3 stents paced middle of december 2018 Past Anesthesia/Blood Transfusion Reactions: No Reported Reaction Date of Last Stent Placement:: 12/22/18 Past Psychological History: No Psychological Hx Reported Smoking Status: Never smoker Past Alcohol Use History: Occasional Past Drug Use History: None Reported - Past Family History Father Additional Family Medical History / Comment(s): FROM SUICIDE Mother Family Medical History: No Reported History Additional Family Medical History / Comment(s): MOM IS 90 AND HEALTHY Medications and Allergies Home Medications Medication Instructions Recorded Confirmed Type Aspirin EC [Ecotrin Low Dose] 81 mg PO DAILY 10/30/16 01/29/25 History Ezetimibe [Zetia] 10 mg PO DAILY 07/17/21 01/29/25 History amLODIPine [Norvasc] 5 mg PO DAILY 07/17/21 01/29/25 History Albuterol Sulfate/Budesonide 2 puff INHALATION RT-Q4H PRN 01/29/25 01/29/25 History [Airsupra 90-80 Mcg Inhaler] Atorvastatin [Lipitor] 80 mg PO DAILY 01/29/25 01/29/25 History Cholecalciferol [Vitamin D3 (125 125 mcg PO DAILY 01/29/25 01/29/25 History Mcg = 5000 Iu)] Ibuprofen [Motrin] 800 mg PO DAILY PRN 01/29/25 01/29/25 History Sildenafil Citrate 100 mg PO DAILY PRN 01/29/25 01/29/25 History Terbinafine [LamISIL] 250 mg PO DAILY 01/29/25 01/29/25 History carvediloL [Coreg] 3.125 mg PO BID 01/29/25 01/29/25 History Allergies Allergy/AdvReac Type Severity Reaction Status Date / Time No Known Allergies Allergy Verified 01/29/25 16:48 Physical Exam Vitals: Vital Signs Temp Pulse Pulse Pulse Resp BP BP 01/30/25 07:10 97.6 F 49 L 17 01/30/25 02:00 98.0 F 64 17 135/80 01/29/25 21:15 98.0 F 63 17 143/79 01/29/25 18:18 54 L 16 126/70 01/29/25 15:08 98.4 F 56 L 18 148/78 BP Pulse Ox 01/30/25 07:10 154/84 93 L 01/30/25 02:00 95 01/29/25 21:15 96 01/29/25 18:18 98 01/29/25 15:08 97 Intake and Output 01/29/25 01/30/25 01/30/25 22:59 06:59 14:59 Other: Voiding Method Toilet Toilet Toilet # Voids 1 2 Weight 117.934 kg Results 01/30/25 05:39 01/30/25 05:39 Cardiac Enzymes 01/29/25 01/29/25 01/29/25 Range/Units 15:39 15:39 18:42 AST 32 (17-59) U/L Troponin I <0.012 <0.012 (0.000-0.034) ng/mL 01/29/25 01/30/25 Range/Units 23:15 05:39 AST 28 (17-59) U/L Troponin I <0.012 (0.000-0.034) ng/mL Coagulation 01/29/25 Range/Units 15:39 PT 10.9 (10.0-12.5) sec APTT 24.0 (22.0-30.0) sec Lipids 01/30/25 Range/Units 05:39 Triglycerides 97.20 (0.00-149.00) mg/dL Cholesterol 122.00 (0.00-200.00) mg/dL HDL Cholesterol 52.10 (40.00-60.00) mg/dL Cholesterol/HDL Ratio 2.34 Ratio CBC 01/29/25 01/30/25 Range/Units 15:39 05:39 WBC 8.44 7.49 (4.50-10.00) 10*3/uL RBC 4.93 5.04 (4.40-5.60) 10*6/uL Hgb 15.4 15.2 (13.0-17.0) g/dL Hct 43.3 45.5 (39.6-50.0) % Plt Count 225 213 (140-440) 10*3/uL Comprehensive Metabolic Panel 01/29/25 01/30/25 Range/Units 15:39 05:39 Sodium 139 141 (137-145) mmol/L Potassium 4.3 4.4 (3.5-5.1) mmol/L Chloride 105 106 (98-107) mmol/L Carbon Dioxide 26 26.3 (22-30) mmol/L BUN 12 11.2 (9-20) mg/dL Creatinine 0.77 0.9 (0.66-1.25) mg/dL Glucose 94 92 (74-99) mg/dL Calcium 9.5 9.1 (8.4-10.2) mg/dL AST 32 28 (17-59) U/L ALT 36 32 (4-49) U/L Alkaline Phosphatase 75 78 (38-126) U/L Total Protein 6.9 6.2 (6.3-8.2) g/dL Albumin 4.4 4.2 (3.5-5.0) g/dL Current Medications Generic Name Dose Route Start Last Admin Trade Name Freq PRN Reason Stop Dose Admin Aminophylline 100 mg 01/30/25 08:53 Aminophylline 500 Mg/20 Ml Vial IV 01/30/25 12:54 ONCE PRN Patient Response Amlodipine Besylate 5 mg 01/30/25 09:00 Amlodipine 5 Mg Tab PO DAILY [facility] Aspirin 81 mg 01/30/25 09:00 Aspirin 81 Mg PO DAILY [facility] Atorvastatin Calcium 80 mg 01/30/25 09:00 Atorvastatin 80 Mg Tab PO DAILY [facility] Caffeine Citrate 60 mg 01/30/25 08:53 Caffeine Citrate 60 Mg/3 Ml Vial IV 01/30/25 12:54 ONCE PRN Patient Response Carvedilol 3.125 mg 01/29/25 18:00 01/30/25 06:06 Carvedilol 3.125 Mg Tab PO Not Given BID-W/MEALS [facility] Cholecalciferol 125 mcg 01/30/25 09:00 Cholecalciferol 125 Mcg (5000 Iu) Tablet PO DAILY [facility] Ezetimibe 10 mg 01/30/25 09:00 Ezetimibe 10 Mg Tab PO DAILY [facility] Sodium Chloride 1,000 mls @ 20 mls/hr 01/29/25 17:00 01/29/25 17:39 Saline 0.9% IV 20 mls/hr .Q24H KAREN Administration Morphine Sulfate 4 mg 01/29/25 16:50 Morphine Sulfate 4 Mg/Ml Syringe IV Q4HR PRN Severe Pain (Scale 7 to 10) Naloxone HCl 0.2 mg 01/29/25 16:50 Naloxone 0.4 Mg/Ml 1 Ml Vial IV Q2M PRN Opioid Reversal Non-Formulary Medication 2 puff 01/29/25 17:40 Albuterol Sulfate/Budesonide [Airsupra 90-80 Mcg Inhaler] INHALATION RT-Q4H PRN Shortness Of Breath Ondansetron HCl 4 mg 01/29/25 16:50 Ondansetron 4 Mg/2 Ml Vial IVP Q8HR PRN Nausea And Vomiting Regadenoson 0.4 mg 01/30/25 08:53 Regadenoson 0.4 Mg/5 Ml Syringe IV 01/30/25 12:54 ONCE PRN Per Protocol Intake and Output 01/29/25 01/30/25 01/30/25 22:59 06:59 14:59 Other: Voiding Method Toilet Toilet Toilet # Voids 1 2 Weight 117.934 kg 01/30/25 05:39 01/30/25 05:39
--- NOTE | 2025-01-30 11:28 | CA ---
Transthoracic Echo Report Name: Lázaro Dover Age: 60 Gender: M : 1965 Exam Date: 01/30/2025 09:22 Exam Location: [place] [facility] Ht (in): 67 Wt (lb): 260 Ordering Physician: Flaco Lyle Attending/Referring Phys: Shingle Shearing Machine Operator Antonina Varma RDCS Procedure CPT: Indications: CP, hx of CAD w/ previous CABG followed by stents Cardiac Hx: Technical Quality: Fair Contrast 1: Definity Total Dose (mL): 2 Contrast 2: Total Dose (mL): MEASUREMENTS (Male / Female) Normal Values 2D ECHO LV Diastolic Diameter PLAX 5.5 cm 4.2 - 5.9 / 3.9 - 5.3 cm LV Systolic Diameter PLAX 3.5 cm IVS Diastolic Thickness 1.3 cm 0.6 - 1.0 / 0.6 - 0.9 cm LVPW Diastolic Thickness 1.4 cm 0.6 - 1.0 / 0.6 - 0.9 cm LV Relative Wall Thickness 0.5 RV Internal Dim ED PLAX 3.3 cm LA Systolic Diameter LX 5.2 cm 3.0 - 4.0 / 2.7 - 3.8 cm LV Diastolic Volume MOD 2C 70.3 cm??? LV Systolic Volume MOD 2C 31.3 cm??? LV Ejection Fraction MOD 2C 55.6 % LV Cardiac Index MOD 2C 775.8 cm???/min???m??? LV Diastolic Length 2C 8.1 cm LV Systolic Length 2C 6.5 cm M-MODE Aortic Root Diameter MM 3.2 cm LA Systolic Diameter MM 4.8 cm LA Ao Ratio MM 1.5 AV Cusp Separation MM 1.9 cm DOPPLER AV Peak Velocity 191.5 cm/s AV Peak Gradient 14.7 mmHg Mitral E Point Velocity 84.6 cm/s Mitral A Point Velocity 68.7 cm/s Mitral E to A Ratio 1.2 MV Deceleration Time 242.9 ms MV E' Velocity 8.0 cm/s Mitral E to MV E' Ratio 10.5 TR Peak Velocity 273.0 cm/s TR Peak Gradient 29.8 mmHg FINDINGS Left Ventricle Left ventricular ejection fraction is estimated at 55-60 %. Normal left ventricular systolic function with no obvious regional wall motion abnormalities. Left ventricular cavity size normal. Mildly increased left ventricular wall thickness. Right Ventricle Right ventricle not well visualized. Right Atrium Moderate right atrial dilatation. Left Atrium Moderately increased left atrial diameter. Mitral Valve Structurally normal mitral valve. mild mitral regurgitation. No mitral stenosis. Aortic Valve Trileaflet aortic valve. No aortic valve stenosis or regurgitation. Tricuspid Valve Structurally normal tricuspid valve. No tricuspid stenosis. [id number] tricuspid regurgitation. Pulmonic Valve Structurally normal pulmonic valve. No pulmonic stenosis. Pericardium No pericardial or pleural effusion. Aorta Normal size aortic root and proximal ascending aorta. CONCLUSIONS 1. Normal left ventricular size and systolic function 2. Mild mitral with mild to moderate tricuspid regurgitation Previewed by: Dr. Shaheed Golden MD (Electronically Signed) Final Date: 30 January 2025 11:28
--- NOTE | 2025-01-30 11:44 | NM ---
EXAMINATION TYPE: NM stress lexiscan cardiolite DATE OF EXAM: 01/30/2025 COMPARISON: 04/08/2020 CLINICAL INDICATION: Male, 60 years old with history of CP, TECHNIQUE: After the intravenous administration of 10.8 mCi Tc 99m Sestamibi - Cardiolite resting SP ECT images acquired 40 minutes post injection. At peak stress 26 mCi Tc 99m Sestamibi - Stress images obtained 47 minutes post injection The patient was stressed with 0.4mg Lexiscan. FINDINGS: No fixed defects are evident. No reversible stress defects on Spect images. Wall motion is normal. Ejection fraction is calculated to be 63 %. IMPRESSION: 1. No stress induced ischemic changes. 2. No fixed defects to suggest prior infarct. [facility], Workstation: [email or web address], 01/30/2025 11:42 AM
[2025-01-30] MEDS: amLODIPine 5 MG TAB PO SCH (11:58)
[2025-01-30] MEDS: EZETIMIBE 10 MG TAB PO SCH (11:58)
[2025-01-30] MEDS: ATORVASTATIN 80 MG TAB PO SCH (11:58)
[2025-01-30] MEDS: ASPIRIN 81 MG PO SCH (11:58)
[2025-01-30] MEDS: CHOLECALCIFEROL 125 MCG (5000 IU) TABLET PO SCH (11:58)
--- NOTE | 2025-01-30 14:10 | P.DS ---
Providers Date of admission: 01/29/25 16:52 Expected date of discharge: 01/30/25 Attending physician: Lula Prince MD Consults: 01/29/25 16:50 Consult Physician Routine Consulting Provider: Shaheed Golden Consult Reason/Comments: cp Do you want consulting provider notified?: Yes Primary care physician: Stated None Hospital Course: Discharge Diagnosis: Chest pain, acute coronary event ruled History of CAD status post CABG x 4 followed by stenting Hypertension Hyperlipidemia Hospital Course: Patient is a very pleasant 60-year-old male with a past medical history of CAD status post CABGx4 followed by stenting, hypertension, and hyperlipidemia. Patient reports he follows with principal network architect Dr. Golden. He states last stent was placed approximately 5 years ago. He presented to the emergency department with a chief complaint of chest pain. Patient reports experiencing intermittent chest pain over the past 5 to 6 days initially felt to midsternal chest radiating into left anterior chest and into left shoulder. Patient denies anything making pain better or worse states that he notices the pain more at rest and admits it is similar to pain felt just prior to previous stent placement. Patient denies having any headache, lightheadedness, dizziness, palpitations, shortness of breath, cough or congestion, or experiencing any numbness/tingling/weakness/swelling in his extremities. He does admit to some left arm tingling when his chest pain radiates into his shoulder and down his arm but denies having any numbness or weakness. He currently reports pain has resolved but again reports it is only been intermittent. Patient reports he last saw his principal network architect approximately 1 month ago and is scheduled for an echocardiogram and stress test next month. Upon arrival to our facility, patient underwent evaluation in the emergency department. Vital signs upon arrival show blood pressure 148/78, heart rate 56, respiratory rate 18, temp 98.4 F, and SpO2 of 97% on room air. EKG was completed showing sinus bradycardia at 54 bpm with no significant T wave or ST abnormality showing no signs of acute ischemia upon personal review and interpretation. Chest x-ray completed negative for acute cardiopulmonary process. Labs completed and reviewed. CBC unremarkable. Coagulation profile normal findings. BMP unremarkable with blood glucose of 94. Magnesium 1.9. Calcium 9.5. Liver profile normal findings. Troponin was less than 0.012 and proBNP was 208. Lipase also normal findings at 76. Patient was started on heparin infusion in the emergency department for treatment of unstable angina. He was then admitted under our services with consultation to cardiology. Troponins were trended all negative at less than 0.012 x 3 draws. Echocardiogram completed showing normal preserved EF of 55 to 60% with mild mitral and mild to moderate tricuspid regurgitation. Lexiscan stress test completed showing no stress-induced ischemic changes and no fixed defects to suggest prior infarct. Patient cleared from cardiology perspective recommending outpatient follow-up in their office. Patient is medically optimized and stable for discharge at this time. No medication changes were made during this admission. Patient to follow-up outpatient with PCP in 1 to 2 days and with principal network architect in 1 week Physical exam: Vital signs reviewed and stable. General: Nontoxic, no distress and appears stated age. Derm: Skin warm and dry, normal coloration for ethnicity. Head: Atraumatic, normocephalic and symmetric. Eyes: EOM's intact, no lid lag, and anicteric sclera Mouth: no lip lesions, mucus membranes moist Cardiovascular: Distant heart sounds, regular rate and rhythm with normal S1S2, no murmur, positive posterior tibial pulses bilaterally, and cap refill < 2 seconds. Lungs: Respirations even, regular, and unlabored on room air. Lungs CTA bilaterally, no rhonchi, no rales, no wheezing, and no accessory muscle usage. Abdominal: soft, nontender to palpation, no guarding, no appreciable organomegaly Ext: ROM intact. No gross muscle atrophy, no edema, no contractures Neuro: Speech clear, face symmetrical and CN II-XII grossly intact with no noted focal neuro deficits Psych: Alert and oriented to person, place, time, and situation. Appropriate and pleasant affect. A total of 33 minutes of time were spent preparing this complex discharge summary. Pt was discharged on at 2:04 PM Patient was seen independently by Nurse Practitioner. This document was prepared using [employer] dictation software. Please allow for errors in bobcat driver/labor while rare they do occur. Flaco Lyle NP rendered care for this patient independently, reviewed the findings and plan as documented in the note above. I did not physically speak with or examine the patient on this date. Patient Condition at Discharge: Stable Plan - Discharge Summary New Discharge Prescriptions: Continue Aspirin EC [Ecotrin Low Dose] 81 mg PO DAILY amLODIPine [Norvasc] 5 mg PO DAILY Ezetimibe [Zetia] 10 mg PO DAILY Cholecalciferol [Vitamin D3 (125 Mcg = 5000 Iu)] 125 mcg PO DAILY Ibuprofen [Motrin] 800 mg PO DAILY PRN PRN Reason: Pain Albuterol Sulfate/Budesonide [Airsupra 90-80 Mcg Inhaler] 2 puff INHALATION RT-Q4H PRN PRN Reason: Shortness Of Breath Sildenafil Citrate 100 mg PO DAILY PRN PRN Reason: E.D Atorvastatin [Lipitor] 80 mg PO DAILY carvediloL [Coreg] 3.125 mg PO BID Terbinafine [LamISIL] 250 mg PO DAILY Discharge Medication List Aspirin EC [Ecotrin Low Dose] 81 mg PO DAILY 10/30/16 [History] Ezetimibe [Zetia] 10 mg PO DAILY 07/17/21 [History] amLODIPine [Norvasc] 5 mg PO DAILY 07/17/21 [History] Albuterol Sulfate/Budesonide [Airsupra 90-80 Mcg Inhaler] 2 puff INHALATION RT- Q4H PRN 01/29/25 [History] Atorvastatin [Lipitor] 80 mg PO DAILY 01/29/25 [History] Cholecalciferol [Vitamin D3 (125 Mcg = 5000 Iu)] 125 mcg PO DAILY 01/29/25 [History] Ibuprofen [Motrin] 800 mg PO DAILY PRN 01/29/25 [History] Sildenafil Citrate 100 mg PO DAILY PRN 01/29/25 [History] Terbinafine [LamISIL] 250 mg PO DAILY 01/29/25 [History] carvediloL [Coreg] 3.125 mg PO BID 01/29/25 [History] Follow up Appointment(s)/Referral(s): Shaheed Golden MD [STAFF PHYSICIAN] - 1 Week [facility] [NON-STAFF] - 03/15/25 11:00 am (Please call a nd set up first available appointment prior to discharge, pt needs PCP with his extensive cardiac history and comorbidities) Patient Instructions/Handouts: Chest Pain (DC) Activity/Diet/Wound Care/Special Instructions: Activity: As tolerated. Take breaks as needed. Diet: Heart healthy and carb consistent diet. Avoid salts, or foods with hidden salts such as canned or boxed foods and frozen dinners. Extra salt makes your heart work harder and traps the fluid in your body for longer. Special Instructions: Take all of your medications as directed and remember to keep all of your doctor's appointments and follow-up as needed. Thank you for allowing us to participate in your care, it was truly a pleasure having you for our patient!!! . Discharge Disposition: HOME SELF-CARE
[2025-01-30 14:58] VITALS: BP 139/72; PULSE 54; RESP 16; TEMP 98.3
--- NOTE | 2025-01-30 16:05 | CA ---
Lexiscan Nuclear Stress Test Report Name: Lázaro Dover Exam Date: 01/30/2025 10:21 Exam Location: [facility] Ht (in): 67 Wt (lb): 260 BSA: 2.26 Ordering Phys: Xin Bustamante Referring Phys: JUNIOR Technologist: SANGEETHA Age: 60 Gender: M : 1965 Procedure CPT: Indications: Reflex order-Stress test ICD-10 Codes: Patient History: Chest pain, hypertension and hyperlipidemia Medications: Meds past 24 hrs: Pretest Chest Pain: STRESS TEST Lexiscan Protocol Exercise Duration (min:sec): 02:[address] Depressions (mm): Angina Score: Perkins Score: Resting HR (bpm): 47 Peak HR (bpm): 72 Resting BP (mmHg): 140 / 77 Peak BP (mmHg): 139 / 68 MPHR: 158 Target HR: 134 % MPHR: 46 METS: 1.0 Total Dose: Peak Dose: Atropine: Double Product: 88015 BP Response: Stress Termination: Infusion complete Stress Symptoms: Flushing Stress Summary: ECG ANALYSIS Resting ECG: Sinus rhythm. Normal conduction. No arrhythmias. Normal repolarization. Stress ECG: No ECG changes from baseline with Lexiscan infusion. CONCLUSIONS No ECG evidence of ischemia with Lexiscan infusion. Nuclear test results to follow. Dr. Shaheed Golden MD (Electronically Signed) Final Date: 30 January 2025 16:04
== END 2025-01-30 15:03 | disposition home or self-care (01) ==
LOC: EC 14:59 → 6NMEDSUR 16:52
PROVIDERS: ADMIT Internal Medicine; ATTEND Internal Medicine
DX: R07.89 Other chest pain (principal); I25.10 Atherosclerotic heart disease of native coronary artery without angina pectoris; I08.1 Rheumatic disorders of both mitral and tricuspid valves; I10 Essential (primary) hypertension; E78.5 Hyperlipidemia, unspecified; R00.1 Bradycardia, unspecified; R20.2 Paresthesia of skin; M25.512 Pain in left shoulder; R05.9 Cough, unspecified; R60.0 Localized edema; E66.01 Morbid (severe) obesity due to excess calories; Z68.41 Body mass index [BMI] 40.0-44.9, adult; Z79.82 Long term (current) use of aspirin; Z79.51 Long term (current) use of inhaled steroids; Z79.899 Other long term (current) drug therapy; Z95.5 Presence of coronary angioplasty implant and graft; Z95.1 Presence of aortocoronary bypass graft
CPT/HCPCS: 99291; 36415; 93005; 93017; 93306; 83880; 80061; 80053 ×2; 83690; 83735 ×2; 84484; 85025 ×2; 85610; 85730; 71046; 78452; G0378 ×2; A9500; Q9957; J2785